=== PATIENT | female | born 1995 | race Caucasian/White ===

== ENCOUNTER 2016-12-05 12:17 | Emergency (ER) | payer SELFPAY ==
[~2016-12-05] VITALS: Ht 172.7 cm; Wt 73.0 kg
[~2016-12-05 12:17] MED LIST: MACR100C2 PO
[2016-12-05 12:23] VITALS: BP 112/76; PULSE 83; RESP 16; TEMP 98.9; O2SAT 98
[2016-12-05] MEDS ORDERED: BACT800T5 PO (13:26)
[2016-12-05] MEDS ORDERED: CIPR-9 PO (13:26)
--- NOTE | 2016-12-05 13:27 | PD ---
HPI Chief Complaint: Mission Coordinator Problem/Complaint Time Seen by Provider: 13:05 Travel History International Travel<30 days: No Contact w/Intl Traveler<30days: No Traveled to known affect area: No History of Present Illness HPI 21-year-old female complains of low abdominal pain. Patient states that the pain started a week ago. Patient states that the pain is intermittent and sharp pain localized to lower abdomen. Patient denies any pain radiation. Patient denies any fever chills. Patient denies any nausea vomiting diarrhea. Patient states that she has minimal discharge recently. Patient denies any dysuria or frequency. Patient has history of recurrent UTI. Patient states that she is 2 weeks late for her menstruation period. PFSH Past Medical History Hx Anticoagulant Therapy: No ADHD: No Anemia: Yes Autoimmune Disease: No Bipolar Disorder: Yes Weight (Kg): 3 Anxiety: Yes Depression: Yes Cardiovascular Problems: No Diabetes: No Diminished Hearing: No Gastrointestinal Disorders: Yes Genitourinary: No Headaches: Yes Musculoskeletal: Yes (CHRONIC LEFT ARM PAIN) Neurologic: No Psychiatric: Yes (CHRONIC DEPRESSION , BIPOLAR, PTSD) Respiratory: No Immunizations Current: Yes Migraines: Yes Seizures: No Thyroid Disease: No Ulcer: No ?: Unknown : 2 Para: 1 Miscarriage: 0 : 0 Ovarian Cysts: Yes (Left) Past Surgical History Abdominal Surgery: Yes (appendectomy 2008) Appendectomy: Yes Section: Yes Cholecystectomy: No Gynecologic Surgery: Yes (removal ovarian cyst 2008) Other Surgery: Yes (01/30-OVARIAN CYSTS , ovary and torsion) Social History Alcohol Use: Yes (Occ.) Tobacco Use: Yes (11/26) Substance Use: Yes (States ETOH approx 2x week. ) Allergies-Medications (Allergen,Severity, Reaction): Coded Allergies: Bees (Verified Allergy, Severe, 12/05/16) Morphine (Verified Adverse Reaction, Intermediate, Nausea/Vomiting, ) Uncoded Allergies: STRAWBERRIES (Allergy, Unknown, 09/09/16) . LACTOSE INTOLERANT (Adverse Reaction, Unknown, 09/09/16) . Reported Meds & Prescriptions Reported Meds & Active Scripts Active Cipro (Ciprofloxacin HCl) 500 Mg Tab 500 Mg PO BID Bactrim DS (Sulfamethoxazole-Trimethoprim) 800-160 Mg Tab 1 Tab PO BID Review of Systems General / Constitutional: No: Fever Eyes: No: Visual changes HENT: No: Headaches Cardiovascular: No: Chest Pain or Discomfort Respiratory: No: Shortness of Breath Gastrointestinal: Positive: Abdominal Pain Genitourinary: No: Dysuria Musculoskeletal: No: Pain Skin: No Rash Neurologic: No: Weakness Psychiatric: No: Depression Endocrine: No: Polydipsia Hematologic/Lymphatic: No: Easy Bruising Physical Exam Narrative GENERAL: Well-nourished, well-developed patient. SKIN: Warm and dry. HEAD: Normocephalic. EYES: No scleral icterus. No injection or drainage. NECK: Supple, trachea midline. No JVD or lymphadenopathy. CARDIOVASCULAR: Regular rate and rhythm without murmurs, gallops, or rubs. RESPIRATORY: Breath sounds equal bilaterally. No accessory muscle use. GASTROINTESTINAL: Abdomen soft, nondistended. Patient has mild tenderness on palpation lower abdomen suprapubic area. No rebound tenderness. No mass. MUSCULOSKELETAL: No cyanosis, or edema. BACK: Nontender without obvious deformity. No CVA tenderness. Data Data Last Documented VS Vital Signs Date Time Temp Pulse Resp B/P Pulse Ox O2 Delivery O2 Flow Rate FiO2 12/05/16 12:23 98.9 83 16 112/76 98 Orders Ed Urine Pregnancytest Poc (12/05/16 12:54) Urinalysis - C+S If Indicated (12/05/16 13:14) MDM Medical Decision Making Medical Screen Exam Complete: Yes Emergency Medical Condition: Yes Interpretation(s) Urine done in the ED negative. Differential Diagnosis Differential diagnosis including UTI, pyelonephritis, cervicitis, PID, ectopic , threatened AB, ovarian cyst, ovarian torsion. Narrative Course 21-year-old female with low abdominal pain. History of recurrent UTI. Patient is 2 weeks late for her regular menstruation period. Urine test negative. I offered patient beta hCG, blood test, patient refused. Patient requested prescription for antibiotic that is free at local store. Diagnosis Primary Impression: UTI (urinary tract infection) Qualified Code: N30.00 - Acute cystitis without hematuria Patient Instructions: General Instructions Additional Instructions: Prescription given for Bactrim and Cipro as directed. Patient has history of recurrent UTI. Patient requests both Bactrim and Cipro. Advised patient to follow up with local low pressure boiler operator. Return if persistent abdominal pain pelvic pain, fever, worsening condition. Med/Other Pt SpecificInfo: Prescription(s) given Scripts Ciprofloxacin (Cipro)500 Mg [id number] Mg PO BID #14 TAB Prov:Eitan Chris MD 12/05/16 Sulfamethoxazole-Trimethoprim (Bactrim DS)800-160 Mg Tab1 Tab PO BID #14 TAB Prov:Eitan Chris MD 12/05/16 Disposition: 01 DISCHARGE HOME Condition: Stable Eitan Chris MD Dec 05, 2016 13:27
[2016-12-05 13:35] LABS: BLOOD, URINE TRACE (NEG); GLUCOSE,URINE NEG (NEG); KETONE, URINE NEG (NEG); NITRITE,URINE NEG (NEG)
[2016-12-05 13:44] LABS: URINE COLOR YELLOW (YELLW/STRAW)
[2016-12-05 13:45] LABS: RBC, URINE 0-3 /hpf (0-3); SQUAMOUS EPITHELIAL CELL URINE 0-5 /hpf (0-5)
[2016-12-05 13:46] LABS: BACTERIA, URINE MOD /hpf; COMMENT (UR) CULTURE INDICATED; CULTURE IF INDICATED CULTURE INDICATED
[2017-02-27] MEDS ORDERED: METR-1 PO (13:29)
[2017-03-14] MEDS ORDERED: ONDA4TAB7 SL (15:55)
[2017-04-09] MEDS ORDERED: ONDA8TAB8 SL (14:13)
[2017-04-09] MEDS ORDERED: RANI150T PO (14:13)
[2017-04-09] MEDS ORDERED: PREN1CHW7 PO (14:19)
[2017-05-06] MEDS ORDERED: NITR1CAP36 PO (14:13)
== END 2016-12-05 14:12 | disposition home or self-care (01) ==
LOC: PHED 12:17
DX: N30.00 Acute cystitis without hematuria (principal); B96.20 Unspecified Escherichia coli [E. coli] as the cause of diseases classified elsewhere
CPT/HCPCS: 81001; 84703; 87077; 87086; 87186; 99284

== ENCOUNTER 2017-02-01 14:07 | Emergency (ER) | payer OTHER ==
[~2017-02-01] VITALS: Ht 170.2 cm; Wt 68.0 kg
[~2017-02-01 14:07] MED LIST changes: +BACT800T5 PO; +CIPR-9 PO; -MACR100C2 PO
[2017-02-01 14:11] VITALS: BP 113/77; PULSE 72; RESP 18; TEMP 98; O2SAT 100
[2017-02-01] MEDS ORDERED: diphenhydrAMINE HCL 25 MG CAP PO ONE (14:45)
[2017-02-01] MEDS ORDERED: PREN29TA PO (14:50)
--- NOTE | 2017-02-01 14:50 | PD ---
HPI Chief Complaint: Skin Problem Time Seen by Provider: 14:39 Travel History International Travel<30 days: No Contact w/Intl Traveler<30days: No Traveled to known affect area: No History of Present Illness HPI This is a 21-year-old female presents emergency department for rash all over for the past 2 days states is itchy in nature. She denies any swelling for throw denies any cough congestion or difficulty breathing. Patient became concerned when the rash started migrating to her "clitoris and became very tingly." Patient denies any fever denies any vaginal bleeding vaginal discharge genital lesion. Patient is 4 weeks . Has not tried anything prior to arrival. She does have some environmental allergies as well as allergies to morphine but has not been exposed to any of those. PFSH Past Medical History Hx Anticoagulant Therapy: No ADHD: No Anemia: Yes Autoimmune Disease: No Bipolar Disorder: Yes Weight (Kg): 3 Anxiety: Yes Depression: Yes Cardiovascular Problems: No Diabetes: No Diminished Hearing: No Gastrointestinal Disorders: Yes Genitourinary: No Headaches: Yes Musculoskeletal: Yes (CHRONIC LEFT ARM PAIN) Neurologic: No Psychiatric: Yes Respiratory: No Immunizations Current: Yes Migraines: Yes Seizures: No Thyroid Disease: No Ulcer: No Tetanus Vaccination: < 5 Years ?: LMP: 4 weeks : 3 Para: 1 Miscarriage: 0 : 0 Ovarian Cysts: Yes (Left) Past Surgical History Abdominal Surgery: Yes (appendectomy 2008) Appendectomy: Yes Section: Yes Cholecystectomy: No Gynecologic Surgery: Yes (removal ovarian cyst 2008) Other Surgery: Yes (01/30-OVARIAN CYSTS , ovary and torsion) Social History Alcohol Use: Yes (Occ.) Tobacco Use: Yes (11/26) Substance Use: No Allergies-Medications (Allergen,Severity, Reaction): Coded Allergies: Bees (Verified Allergy, Severe, 12/05/16) Morphine (Verified Adverse Reaction, Intermediate, Nausea/Vomiting, ) Uncoded Allergies: STRAWBERRIES (Allergy, Unknown, 09/09/16) . LACTOSE INTOLERANT (Adverse Reaction, Unknown, 09/09/16) . Reported Meds & Prescriptions Reported Meds & Active Scripts Active Plus Iron 29-1 mg ( Vit-Iron Carbonyl) 1 Tab Tab 1 Tab PO DAILY Cipro (Ciprofloxacin HCl) 500 Mg Tab 500 Mg PO BID Bactrim DS (Sulfamethoxazole-Trimethoprim) 800-160 Mg Tab 1 Tab PO BID Review of Systems Except as stated in HPI: all other systems reviewed are Neg Physical Exam Narrative GENERAL: Well-nourished, well-developed patient. SKIN: There is a very mild erythematous blotchy rash on her anterior abdomen around the umbilicus as well as the mons pubis. There is also some blotchy areas of her low back. Consistent with mild allergic reaction. HEAD: Normocephalic. EYES: No scleral icterus. No injection or drainage. NECK: Supple, trachea midline. No JVD or lymphadenopathy. CARDIOVASCULAR: Regular rate and rhythm without murmurs, gallops, or rubs. RESPIRATORY: Breath sounds equal bilaterally. No accessory muscle use. GASTROINTESTINAL: Abdomen soft, non-tender, nondistended. Uterine fundus nonpalpable. GENITOURINARY: Patient was examined with female nurse machine ii trimmer present at all times, external exam only shows no rash no lesion on her external genitalia.. MUSCULOSKELETAL: No cyanosis, or edema. BACK: Nontender without obvious deformity. No CVA tenderness. Data Data Last Documented VS Vital Signs Date Time Temp Pulse Resp B/P Pulse Ox O2 Delivery O2 Flow Rate FiO2 02/01/17 14:11 98.0 72 18 113/77 100 Orders Diphenhydramine (Benadryl) (02/01/17 14:45) [facility] Medical Decision Making Medical Screen Exam Complete: Yes Emergency Medical Condition: Yes Differential Diagnosis Hives, allergic dermatitis, cellulitis unlikely, acute abdomen unlikely, Narrative Course Patient roomed emerged permit appears well in no apparent distress. She is 4 weeks but denies any abdominal pain nausea vomiting or diarrhea denies any vaginal bleeding or vaginal discharge. Her rash is very mild. It is pruritic and recommended Benadryl by mouth and follow-up up with her primary care physician. She is not established with OB. We'll prescribe her vitamins and discussed first trimester do's and doughnuts. Diagnosis Primary Impression: Rash Med/Other Pt SpecificInfo: Prescription(s) given Scripts Vit-Iron Carbonyl ( Plus Iron 29-1 mg)1 Tab Tab1 Tab PO DAILY #30 TAB Ref 9 Prov:Shahriar Lawrence MD 02/01/17 Disposition: DISCHARGE HOME Condition: Stable Shahriar Lawrence MD Feb 01, 2017 14:50
[2017-02-27] MEDS ORDERED: METR-1 PO (13:29)
[2017-03-14] MEDS ORDERED: ONDA4TAB7 SL (15:55)
[2017-04-09] MEDS ORDERED: RANI150T PO (14:13)
[2017-04-09] MEDS ORDERED: ONDA8TAB8 SL (14:13)
[2017-04-09] MEDS ORDERED: PREN1CHW7 PO (14:19)
[2017-05-06] MEDS ORDERED: NITR1CAP36 PO (14:13)
== END 2017-02-01 14:58 | disposition home or self-care (01) ==
LOC: NEPB 14:07
DX: R21 Rash and other nonspecific skin eruption (principal); F17.210 Nicotine dependence, cigarettes, uncomplicated
CPT/HCPCS: 99282

== ENCOUNTER 2017-02-07 10:07 | Emergency (ER) | payer OTHER ==
[~2017-02-07] VITALS: Ht 170.2 cm; Wt 70.0 kg
[~2017-02-07 10:07] MED LIST changes: +PREN29TA PO
[2017-02-07 10:09] VITALS: BP 126/74; PULSE 100; RESP 20; TEMP 99.2; O2SAT 96
[2017-02-07] MEDS ORDERED: SODIUM CHLOR 0.9% 1000 ML INJ 1,000 ML IV SCH (10:24)
[2017-02-07 10:28] VITALS: PULSE 101; O2SAT 100
[2017-02-07] MEDS ORDERED: SODIUM CHLORIDE 0.9% FLUSH 5 ML FLUSH IVF PRN (10:30)
[2017-02-07] MEDS ORDERED: ONDANSETRON HCL 4 MG/2 ML VIAL IVP ONE (10:30)
--- NOTE | 2017-02-07 10:44 | PD ---
HPI Chief Complaint: Cold / Flu Symptoms Time Seen by Provider: 10:36 Travel History International Travel<30 days: No Contact w/Intl Traveler<30days: No Traveled to known affect area: No History of Present Illness HPI 21-year-old female who is currently 7 weeks by dates, has not yet follow-up with EMBROIDERY OPERATOR, presents to the ER today because she states that her knees has been sick and she started having cough, cold symptoms, sore throat, nausea, vomiting, for about 4 days. She is here because she keeps vomiting. She denies any diarrhea, abdominal pain, vaginal bleeding, fevers, urinary symptoms, or any other symptoms. Modifying Factors: None Associated Signs & Symptoms: Cough, cold symptoms, nasal congestion, nausea, vomiting for 4 days Risk Factors: Sick contact, PFSH Past Medical History Hx Anticoagulant Therapy: No ADHD: No Anemia: Yes Autoimmune Disease: No Bipolar Disorder: Yes Weight (Kg): 3 Anxiety: Yes Depression: Yes Cardiovascular Problems: No Diabetes: No Diminished Hearing: No Gastrointestinal Disorders: Yes Genitourinary: No Headaches: Yes Musculoskeletal: Yes (CHRONIC LEFT ARM PAIN) Neurologic: No Psychiatric: Yes Respiratory: No Immunizations Current: Yes Migraines: Yes Seizures: No Thyroid Disease: No Ulcer: No ?: LMP: 12/13/16 : 2 Para: 1 Miscarriage: 0 : 0 Ovarian Cysts: Yes (Left) Past Surgical History Abdominal Surgery: Yes (appendectomy 2008) Appendectomy: Yes Section: Yes Cholecystectomy: No Gynecologic Surgery: Yes (removal ovarian cyst 2008) Hysterectomy: Yes (L SIDE ONLY ) Other Surgery: Yes (01/30-OVARIAN CYSTS , ovary and torsion) Social History Alcohol Use: Yes (Occ.) Tobacco Use: Yes (/2) Substance Use: No Allergies-Medications (Allergen,Severity, Reaction): Coded Allergies: Bees (Verified Allergy, Severe, 02/07/17) Morphine (Verified Adverse Reaction, Intermediate, Nausea/Vomiting, ) Uncoded Allergies: STRAWBERRIES (Allergy, Unknown, 09/09/16) . LACTOSE INTOLERANT (Adverse Reaction, Unknown, 09/09/16) . Reported Meds & Prescriptions Reported Meds & Active Scripts Active Zofran Odt (Ondansetron Odt) 4 Mg Tab 4 Mg SL Q6HR PRN Review of Systems Except as stated in HPI: all other systems reviewed are Neg Physical Exam Narrative GENERAL: Well-developed young white female patient who is awake, alert, oriented 3. She is not in acute distress. SKIN: Warm and dry. HEAD: Atraumatic. Normocephalic. EYES: Pupils equal and round. No scleral icterus. No injection or drainage. ENT: No nasal bleeding or discharge. Mucous membranes pink and moist. Pharyngeal erythema without significant exudates, tonsillar pillars symmetrical. NECK: Trachea midline. No JVD. CARDIOVASCULAR: Regular rate and rhythm. No murmur appreciated. RESPIRATORY: No accessory muscle use. Clear to auscultation. Breath sounds equal bilaterally. GASTROINTESTINAL: Abdomen soft, non-tender, nondistended. Hepatic and splenic margins not palpable. Benign. MUSCULOSKELETAL: No obvious deformities. No clubbing. No cyanosis. No edema. NEUROLOGICAL: Awake and alert. No obvious cranial nerve deficits. Motor grossly within normal limits. Normal speech. PSYCHIATRIC: Appropriate mood and affect; insight and judgment normal. Data Data Last Documented VS Vital Signs Date Time Temp Pulse Resp B/P Pulse Ox O2 Delivery O2 Flow Rate FiO2 02/07/17 10:28 101 100 Room Air 02/07/17 10:21 26 02/07/17 10:09 99.2 126/74 Orders Complete Blood Count With Diff (02/07/17 10:24) Comprehensive Metabolic Panel (02/07/17 10:24) Lipase (02/07/17 10:24) Urinalysis - C+S If Indicated (02/07/17 10:24) Iv Access Insert/Monitor (02/07/17 10:24) Ecg Monitoring (02/07/17 10:24) Oximetry (02/07/17 10:24) Ondansetron Inj (Zofran Inj) (02/07/17 10:30) Sodium Chlor 0.9% 1000 Ml Inj (Ns 1000 M (02/07/17 10:24) Sodium Chloride 0.9% Flush (Ns Flush) (02/07/17 10:30) Ed Urine Pregnancytest Poc (02/07/17 10:24) Beta Hcg (Quant/Titer) (02/07/17 10:36) Ed Poc Ultrasound (02/07/17 ) Influenzae A/B Antigen (02/07/17 10:49) Labs Laboratory Tests Test 02/07/17 10:30 White Blood Count 5.8 TH/MM3 Red Blood Count 4.46 MIL/MM3 Hemoglobin 12.7 GM/DL Hematocrit 37.9 % Mean Corpuscular Volume 84.9 FL Mean Corpuscular Hemoglobin 28.5 PG Mean Corpuscular Hemoglobin 33.6 % Concent Red Cell Distribution Width 16.0 % Platelet Count 144 TH/MM3 Mean Platelet Volume 9.1 FL Neutrophils (%) (Auto) 76.3 % Lymphocytes (%) (Auto) 10.6 % Monocytes (%) (Auto) 12.4 % Eosinophils (%) (Auto) 0.1 % Basophils (%) (Auto) 0.6 % Neutrophils # (Auto) 4.4 TH/MM3 Lymphocytes # (Auto) 0.6 TH/MM3 Monocytes # (Auto) 0.7 TH/MM3 Eosinophils # (Auto) 0.0 TH/MM3 Basophils # (Auto) 0.0 TH/MM3 CBC Comment DIFF FINAL Differential Comment Urine Color YELLOW Urine Turbidity CLOUDY Urine pH 6.0 Urine Specific [place] 1.027 Urine Protein 100 mg/dL Urine Glucose (UA) 70 mg/dL Urine Ketones TRACE mg/dL Urine Occult Blood NEG Urine Nitrite NEG Urine Bilirubin NEG Urine Urobilinogen 4.0 MG/DL Urine Leukocyte Esterase NEG Urine Squamous Epithelial 4 /hpf Cells Urine Amorphous Sediment MOD Urine Mucus MANY /lpf Microscopic Urinalysis Comment CULT NOT INDICATED Sodium Level 134 MEQ/L Potassium Level 3.2 MEQ/L Chloride Level 101 MEQ/L Carbon Dioxide Level 22.1 MEQ/L Anion Gap 11 MEQ/L Blood Urea Nitrogen 6 MG/DL Creatinine 0.84 MG/DL Estimat Glomerular Filtration 86 ML/MIN Rate Random Glucose 104 MG/DL Calcium Level 9.1 MG/DL Total Bilirubin 0.3 MG/DL Aspartate Amino Transf 14 U/L (AST/SGOT) Alanine Aminotransferase 15 U/L (ALT/SGPT) Alkaline Phosphatase 66 U/L Total Protein 7.9 GM/DL Albumin 4.1 GM/DL Lipase 46 U/L Human Chorionic Gonadotropin, [id number] MIU/ML Quant MDM Medical Decision Making Medical Screen Exam Complete: Yes Emergency Medical Condition: Yes Medical Record Reviewed: Yes Interpretation(s) Laboratory Tests Test 02/07/17 10:30 Platelet Count 144 TH/MM3 (150-450) Neutrophils (%) (Auto) 76.3 % (16.0-70.0) Monocytes (%) (Auto) 12.4 % (0.0-8.0) Lymphocytes # (Auto) 0.6 TH/MM3 (1.0-4.8) Urine Turbidity CLOUDY (CLEAR) Urine Protein 100 mg/dL (NEG-TRACE) Urine Glucose (UA) 70 mg/dL (NEG) Urine Ketones TRACE mg/dL (NEG) Urine Urobilinogen 4.0 MG/DL (LESS THAN 2.0) Urine Mucus MANY /lpf (OCC) Sodium Level 134 MEQ/L (136-145) Potassium Level 3.2 MEQ/L (3.5-5.1) Blood Urea Nitrogen 6 MG/DL (7-18) Estimat Glomerular Filtration 86 ML/MIN (>89) Rate Aspartate Amino Transf 14 U/L (15-37) (AST/SGOT) Lipase 46 U/L (73-393) Human Chorionic Gonadotropin, 334[address] MIU/ML Quant (0-5) Differential Diagnosis Hyperemesis gravidarum versus viral syndrome versus influenza versus metabolic issues versus dehydration Narrative Course IV fluids and Zofran was given in the ER. Lab work drawn. Transabdominal ultrasound shows IUP. Lab work did not indicate significant metabolic issues or dehydration. At this point, my plan would be to release the patient would follow-up to primary care physician and EMBROIDERY OPERATOR. Return for any worsening in symptoms as needed. The plan has been discussed with her and she states understanding. Procedures Procedure Narrative Transabdominal ER ultrasound done by me shows early IUP. Diagnosis Primary Impression: Viral syndrome Additional Impression: Hyperemesis gravidarum Med/Other Pt SpecificInfo: Prescription(s) given Scripts Ondansetron Odt (Zofran Odt)4 Mg Tab4 Mg SL Q6HR PRN (Nausea/Vomiting) #5 TAB Ref 0 Prov:Katina Major MD 02/07/17 Disposition: 01 DISCHARGE HOME Condition: Stable Katina Major MD Feb 07, 2017 10:44 Katina Major MD Feb 07, 2017 10:44
[2017-02-07 10:45] LABS: AUTOMATED NEUTROPHIL # 4.4 TH/MM3 (1.8-7.7); BASOPHIL % 0.6 % (0.0-2.0); EOSINOPHIL % 0.1 % (0.0-4.0); HEMATOCRIT 37.9 % (35.0-46.0); HEMO FLAGS DIFF FINAL; LYMPH % 10.6 % (9.0-44.0); LYMPHOCYTE # 0.6 TH/MM3 (1.0-4.8); MEAN CELL VOLUME 84.9 FL (80.0-100.0); MEAN CORPUSCULAR HEMOGLOBIN 28.5 PG (27.0-34.0); MEAN CORPUSCULAR HGB CONC 33.6 % (32.0-36.0); MONO % 12.4 % (0.0-8.0); NEUT % 76.3 % (16.0-70.0); PLATELET COUNT 144 TH/MM3 (150-450); RED BLOOD COUNT 4.46 MIL/MM3 (4.00-5.30); WHITE BLOOD COUNT 5.8 TH/MM3 (4.0-11.0)
[2017-02-07 10:55] LABS: BLOOD, URINE NEG (NEG); GLUCOSE,URINE 70 mg/dL (NEG); KETONE, URINE TRACE mg/dL (NEG); MUCUS URINE MANY /lpf (OCC); NITRITE,URINE NEG (NEG); SQUAMOUS EPITHELIAL CELL URINE 4 /hpf (0-5)
[2017-02-07 10:56] LABS: URINE COLOR YELLOW (YELLW/STRAW)
[2017-02-07 10:57] LABS: COMMENT (UR) CULT NOT INDICATED; CULTURE IF INDICATED CULT NOT INDICATED
[2017-02-07 11:01] LABS: ALT (GPT) 15 U/L (10-53); ANION GAP 11 MEQ/L (5-15); AST (GOT) 14 U/L (15-37); BICARBONATE 22.1 MEQ/L (21.0-32.0); BLOOD UREA NITROGEN 6 MG/DL (7-18); CHLORIDE 101 MEQ/L (98-107); GLOMERULAR FILTRATION RATE 86 ML/MIN (>89); POTASSIUM 3.2 MEQ/L (3.5-5.1); SODIUM (NA) 134 MEQ/L (136-145)
[2017-02-07 11:02] LABS: ALKALINE PHOSPHATASE 66 U/L (45-117); TOTAL BILIRUBIN ADULT 0.3 MG/DL (0.2-1.0)
[2017-02-07 11:17] LABS: BETA HCG QUANT 48678 MIU/ML (0-5)
[2017-02-07] MEDS ORDERED: ZOFR4TAB3 SL (11:46)
[2017-02-27] MEDS ORDERED: METR-1 PO (13:29)
[2017-03-14] MEDS ORDERED: ONDA4TAB7 SL (15:55)
[2017-04-09] MEDS ORDERED: RANI150T PO (14:13)
[2017-04-09] MEDS ORDERED: ONDA8TAB8 SL (14:13)
[2017-04-09] MEDS ORDERED: PREN1CHW7 PO (14:19)
[2017-05-06] MEDS ORDERED: NITR1CAP36 PO (14:13)
== END 2017-02-07 13:13 | disposition home or self-care (01) ==
LOC: NEPC 10:07
DX: O21.0 Mild hyperemesis gravidarum (principal); B34.9 Viral infection, unspecified; Z3A.01 Less than 8 weeks gestation of pregnancy
CPT/HCPCS: 80053; 81001; 83690; 84702; 84703; 85025; 87804; 96361; 96374; 99284; J2405; J7030

== ENCOUNTER 2017-02-11 16:25 | Emergency (ER) | payer OTHER ==
[~2017-02-11] VITALS: Ht 170.2 cm; Wt 68.0 kg
[~2017-02-11 16:25] MED LIST changes: -BACT800T5 PO; -CIPR-9 PO; -PREN29TA PO; +ZOFR4TAB3 SL
[2017-02-11 16:27] VITALS: BP 116/70; PULSE 75; RESP 20; TEMP 97.5; O2SAT 98
[2017-02-27] MEDS ORDERED: METR-1 PO (13:29)
[2017-03-14] MEDS ORDERED: ONDA4TAB7 SL (15:55)
[2017-04-09] MEDS ORDERED: RANI150T PO (14:13)
[2017-04-09] MEDS ORDERED: ONDA8TAB8 SL (14:13)
[2017-04-09] MEDS ORDERED: PREN1CHW7 PO (14:19)
[2017-05-06] MEDS ORDERED: NITR1CAP36 PO (14:13)
== END 2017-02-11 16:32 | disposition left against medical advice (07) ==
LOC: NED 16:25
DX: Z53.21 Procedure and treatment not carried out due to patient leaving prior to being seen by health care provider (principal)
CPT/HCPCS: 99281

== ENCOUNTER 2017-02-17 11:59 | Emergency (ER) | payer OTHER ==
[~2017-02-17] VITALS: Ht 170.2 cm; Wt 70.0 kg
[2017-02-17 12:02] VITALS: BP 108/60; PULSE 75; RESP 20; TEMP 97.6; O2SAT 97
--- NOTE | 2017-02-17 12:45 | PD ---
HPI . Vaginal bleeding at 8 weeks Chief Complaint: Related Problem Time Seen by Provider: 12:45 Travel History International Travel<30 days: No Contact w/Intl Traveler<30days: No Traveled to known affect area: No History of Present Illness HPI 21-year-old female with history of anemia during , history of partial hysterectomy with removal of left fallopian tube and ovary due to torsion here with complaints of vaginal bleeding and right sided abdominal pain. Patient is (records indicated possible ) now 8 weeks with estimated date of delivery of 09/19/17. She has not yet established with her OB Brittny Chappis. She has appointment this coming up . Patient is complaining of vaginal bleeding heavy enough to use one pad every 6 hours. She is also complaining of right sided lower quadrant pain in the buttocks and the back as well. She does admit to tobaccoism and smokes half a pack a day. Review of records show Rh negative. PFSH Past Medical History Hx Anticoagulant Therapy: No ADHD: No Anemia: Yes Autoimmune Disease: No Bipolar Disorder: Yes Weight (Kg): 3 Anxiety: Yes Depression: Yes Cardiovascular Problems: No Diabetes: No Diminished Hearing: No Gastrointestinal Disorders: Yes Genitourinary: No Headaches: Yes Musculoskeletal: Yes (CHRONIC LEFT ARM PAIN) Neurologic: No Psychiatric: Yes Respiratory: No Immunizations Current: Yes Migraines: Yes Seizures: No Thyroid Disease: No Ulcer: No ?: : 2 Para: 1 Miscarriage: 0 : 0 Ovarian Cysts: Yes (Left) Past Surgical History Abdominal Surgery: Yes (appendectomy 2008) Appendectomy: Yes Section: Yes Cholecystectomy: No Gynecologic Surgery: Yes (removal ovarian cyst 2008) Hysterectomy: Yes (L SIDE ONLY ) Other Surgery: Yes (01/30-OVARIAN CYSTS , ovary and torsion) Social History Alcohol Use: Yes (Occ.) Tobacco Use: Yes (11/26) Substance Use: No Allergies-Medications (Allergen,Severity, Reaction): Coded Allergies: Bees (Verified Allergy, Severe, 02/17/17) Morphine (Verified Adverse Reaction, Intermediate, Nausea/Vomiting, ) Uncoded Allergies: STRAWBERRIES (Allergy, Unknown, 09/09/16) . LACTOSE INTOLERANT (Adverse Reaction, Unknown, 09/09/16) . Reported Meds & Prescriptions Reported Meds & Active Scripts Active Zofran Odt (Ondansetron Odt) 4 Mg Tab 4 Mg SL Q6HR PRN Review of Systems General / Constitutional: No: Fever Eyes: No: Visual changes HENT: No: Headaches Cardiovascular: No: Chest Pain or Discomfort Respiratory: No: Shortness of Breath Gastrointestinal: No: Abdominal Pain Genitourinary: No: Dysuria Musculoskeletal: Positive: Pain (right lower quadrant pain) Skin: No Rash Neurologic: No: Weakness Psychiatric: No: Depression Endocrine: No: Polydipsia Hematologic/Lymphatic: No: Easy Bruising Physical Exam Narrative GENERAL: AAO x 3, no acute distress, Well-nourished, well-developed patient. SKIN: Warm and dry. No visible rashes or bruising. HEAD: Normocephalic and atraumatic. EYES: No scleral icterus. No injection or drainage. ENT: No nasal drainage noted. Mucous membranes pink. Airway patent. NECK: Supple, trachea midline. No JVD. CARDIOVASCULAR: Regular rate and rhythm without murmurs, gallops, or rubs. RESPIRATORY: Breath sounds equal bilaterally. No accessory muscle use. No rhonchi or rales. GASTROINTESTINAL: Abdomen soft, non-tender, nondistended. pain not reproducible on exam. EXTREMITIES: No cyanosis or edema. BACK: Nontender without obvious deformity. No CVA tenderness. PSYCH: AAO x 3, normal affect. Data Data Last Documented VS Vital Signs Date Time Temp Pulse Resp B/P Pulse Ox O2 Delivery O2 Flow Rate FiO2 02/17/17 14:36 98 Room Air 02/17/17 12:44 79 18 02/17/17 12:02 97.6 108/60 Orders Beta Hcg (Quant/Titer) (02/17/17 12:50) Complete Blood Count With Diff (02/17/17 12:50) Comprehensive Metabolic Panel (02/17/17 12:50) Urinalysis - C+S If Indicated (02/17/17 12:50) Iv Access Insert/Monitor (02/17/17 12:50) Ecg Monitoring (02/17/17 12:50) Oximetry (02/17/17 12:50) Sodium Chloride 0.9% Flush (Ns Flush) (02/17/17 13:00) Us Pelvis (Ques Preg/Ectopic) (02/17/17 12:54) Urine Culture (02/17/17 13:24) Ed Urine Pregnancytest Poc (02/17/17 14:07) Rhogam Only (02/17/17 15:01) Labs Laboratory Tests Test 02/17/17 02/17/17 12:24 13:24 White Blood Count 5.9 TH/MM3 Red Blood Count 4.40 MIL/MM3 Hemoglobin 12.8 GM/DL Hematocrit 37.0 % Mean Corpuscular Volume 84.1 FL Mean Corpuscular Hemoglobin 29.0 PG Mean Corpuscular Hemoglobin 34.5 % Concent Red Cell Distribution Width 15.8 % Platelet Count 179 TH/MM3 Mean Platelet Volume 9.8 FL Neutrophils (%) (Auto) 54.0 % Lymphocytes (%) (Auto) 34.1 % Monocytes (%) (Auto) 10.6 % Eosinophils (%) (Auto) 1.1 % Basophils (%) (Auto) 0.2 % Neutrophils # (Auto) 3.2 TH/MM3 Lymphocytes # (Auto) 2.0 TH/MM3 Monocytes # (Auto) 0.6 TH/MM3 Eosinophils # (Auto) 0.1 TH/MM3 Basophils # (Auto) 0.0 TH/MM3 CBC Comment DIFF FINAL Differential Comment Sodium Level 139 MEQ/L Potassium Level 3.6 MEQ/L Chloride Level 104 MEQ/L Carbon Dioxide Level 26.8 MEQ/L Anion Gap 8 MEQ/L Blood Urea Nitrogen 6 MG/DL Creatinine 0.52 MG/DL Estimat Glomerular Filtration 149 ML/MIN Rate Random Glucose 87 MG/DL Calcium Level 9.2 MG/DL Total Bilirubin 0.5 MG/DL Aspartate Amino Transf 16 U/L (AST/SGOT) Alanine Aminotransferase 33 U/L (ALT/SGPT) Alkaline Phosphatase 52 U/L Total Protein 7.5 GM/DL Albumin 3.6 GM/DL Human Chorionic Gonadotropin, 17919 MIU/ML Quant Urine Color YELLOW Urine Turbidity CLOUDY Urine pH 7.0 Urine Specific [place] 1.022 Urine Protein 30 mg/dL Urine Glucose (UA) NEG mg/dL Urine Ketones NEG mg/dL Urine Occult Blood MOD Urine Nitrite NEG Urine Bilirubin NEG Urine Urobilinogen 4.0 MG/DL Urine Leukocyte Esterase LARGE Urine RBC 4 /hpf Urine WBC 13 /hpf Urine Squamous Epithelial 54 /hpf Cells Urine Amorphous Sediment MOD Urine Bacteria OCC /hpf Urine Mucus MANY /lpf Microscopic Urinalysis Comment CULTURE INDICATED MDM Medical Decision Making Medical Screen Exam Complete: Yes Emergency Medical Condition: Yes Medical Record Reviewed: Yes Differential Diagnosis miscarriage, threatened ab, vs. ectopic Narrative Course 21-year-old female with history of anemia during , history of partial hysterectomy with removal of left fallopian tube and ovary due to torsion here with complaints of vaginal bleeding and right sided abdominal pain. Patient is (records indicated possible ) now 8 weeks with estimated date of delivery of 09/19/17. She has not yet established with her OB Brittny Chappis. She has appointment this coming up . Patient is complaining of vaginal bleeding heavy enough to use one pad every 6 hours. She is also complaining of right sided lower quadrant pain in the buttocks and the back as well. She does admit to tobaccoism and smokes half a pack a day. Review of records show Rh negative. Patient seen and examined. Discussed with Dr. Major, who also examined the patient. Recommend labs and ultrasound. Laboratory Tests Test 02/17/17 02/17/17 12:24 13:24 White Blood Count 5.9 TH/MM3 Red Blood Count 4.40 MIL/MM3 Hemoglobin 12.8 GM/DL Hematocrit 37.0 % Mean Corpuscular Volume 84.1 FL Mean Corpuscular Hemoglobin 29.0 PG Mean Corpuscular Hemoglobin 34.5 % Concent Red Cell Distribution Width 15.8 % Platelet Count 179 TH/MM3 Mean Platelet Volume 9.8 FL Neutrophils (%) (Auto) 54.0 % Lymphocytes (%) (Auto) 34.1 % Monocytes (%) (Auto) 10.6 % Eosinophils (%) (Auto) 1.1 % Basophils (%) (Auto) 0.2 % Neutrophils # (Auto) 3.2 TH/MM3 Lymphocytes # (Auto) 2.0 TH/MM3 Monocytes # (Auto) 0.6 TH/MM3 Eosinophils # (Auto) 0.1 TH/MM3 Basophils # (Auto) 0.0 TH/MM3 CBC Comment DIFF FINAL Differential Comment Sodium Level 139 MEQ/L Potassium Level 3.6 MEQ/L Chloride Level 104 MEQ/L Carbon Dioxide Level 26.8 MEQ/L Anion Gap 8 MEQ/L Blood Urea Nitrogen 6 MG/DL Creatinine 0.52 MG/DL Estimat Glomerular Filtration 149 ML/MIN Rate Random Glucose 87 MG/DL Calcium Level 9.2 MG/DL Total Bilirubin 0.5 MG/DL Aspartate Amino Transf 16 U/L (AST/SGOT) Alanine Aminotransferase 33 U/L (ALT/SGPT) Alkaline Phosphatase 52 U/L Total Protein 7.5 GM/DL Albumin 3.6 GM/DL Human Chorionic Gonadotropin, 99135 MIU/ML Quant Urine Color YELLOW Urine Turbidity CLOUDY Urine pH 7.0 Urine Specific [place] 1.022 Urine Protein 30 mg/dL Urine Glucose (UA) NEG mg/dL Urine Ketones NEG mg/dL Urine Occult Blood MOD Urine Nitrite NEG Urine Bilirubin NEG Urine Urobilinogen 4.0 MG/DL Urine Leukocyte Esterase LARGE Urine RBC 4 /hpf Urine WBC 13 /hpf Urine Squamous Epithelial 54 /hpf Cells Urine Amorphous Sediment MOD Urine Bacteria OCC /hpf Urine Mucus MANY /lpf Microscopic Urinalysis Comment CULTURE INDICATED US visualized by Dr. Major. IUP with heartbeat. Per review of records patient is Rh-. We will administer RhoGAM and she will be stable for discharge. Discussed with patient personally. She has been advised to follow-up with her [employer] as soon as possible. Patient verbalized understanding of instructions, questions were answered, and thanked me for their care. I advised them if their condition worsens, please return to the nearest emergency room for further care. Diagnosis Primary Impression: Vaginal bleeding Additional Impression: Qualified Code: Z3A.08 - 8 weeks gestation of Patient Instructions: Abdominal Pain in (ED), General Instructions Additional Instructions: Please return to emergency department if your symptoms return or worsen. Follow up with your primary care provider. Take vitamins. 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 Disposition: 01 DISCHARGE HOME Condition: Stable Candice Mahmood Feb 17, 2017 12:45
[2017-02-17] MEDS ORDERED: SODIUM CHLORIDE 0.9% FLUSH 10 ML FLUSH IV FLUSH PRN (13:00)
[2017-02-17 13:41] LABS: AUTOMATED NEUTROPHIL # 3.2 TH/MM3 (1.8-7.7); BASOPHIL % 0.2 % (0.0-2.0); EOSINOPHIL # 0.1 TH/MM3 (0-0.4); EOSINOPHIL % 1.1 % (0.0-4.0); HEMO FLAGS DIFF FINAL; LYMPH % 34.1 % (9.0-44.0); MEAN CELL VOLUME 84.1 FL (80.0-100.0); MEAN CORPUSCULAR HGB CONC 34.5 % (32.0-36.0); MONO % 10.6 % (0.0-8.0); PLATELET COUNT 179 TH/MM3 (150-450); RED CELL DISTRIBUTION WIDTH 15.8 % (11.6-17.2); WHITE BLOOD COUNT 5.9 TH/MM3 (4.0-11.0)
[2017-02-17 14:00] LABS: ANION GAP 8 MEQ/L (5-15); AST (GOT) 16 U/L (15-37); BICARBONATE 26.8 MEQ/L (21.0-32.0); BLOOD UREA NITROGEN 6 MG/DL (7-18); CHLORIDE 104 MEQ/L (98-107); GLOMERULAR FILTRATION RATE 149 ML/MIN (>89); POTASSIUM 3.6 MEQ/L (3.5-5.1); SODIUM (NA) 139 MEQ/L (136-145)
[2017-02-17 14:03] LABS: BACTERIA, URINE OCC /hpf; BLOOD, URINE MOD (NEG); COMMENT (UR) CULTURE INDICATED; CULTURE IF INDICATED CULTURE INDICATED; GLUCOSE,URINE NEG (NEG); KETONE, URINE NEG (NEG); MUCUS URINE MANY /lpf (OCC); NITRITE,URINE NEG (NEG); SQUAMOUS EPITHELIAL CELL URINE 54 /hpf (0-5); URINE COLOR YELLOW (YELLW/STRAW)
[2017-02-17 14:18] LABS: ALKALINE PHOSPHATASE 52 U/L (45-117); ALT (GPT) 33 U/L (10-53); BETA HCG QUANT 96745 MIU/ML (0-5); TOTAL BILIRUBIN ADULT 0.5 MG/DL (0.2-1.0)
[2017-02-17 14:36] VITALS: O2SAT 98
--- NOTE | 2017-02-17 15:58 | RADRPT ---
EXAM DATE/TIME: 02/17/2017 14:46 [facility] COMPARISON: No previous studies available for comparison. INDICATIONS : Pelvic pain and vaginal bleeding with . LAB(S): Beta-hC MEDICAL HISTORY : . Migraines. Ovarian cysts. Bipolar disorder. Depression. Anxiety. Anemia. SURGICAL HISTORY : Appendectomy. Partial hysterectomy. ENCOUNTER: Initial ACUITY: 1 day PAIN SCORE: 4/10 LOCATION: Bilateral pelvis MEASUREMENTS: UTERUS: 12.9 x 10.1 x 7.8 cm ENDOMETRIAL STRIPE: 16 mm RIGHT OVARY: 3.3 x 1.9 x 2.5 cm LEFT OVARY: 5.6 x 2.4 x 2.4 cm FREE FLUID: No CROWN RUMP LENGTH: 1.7 cm = 8 WKS 1 DAYS FHR: 185 BPM FINDINGS: There is a single viable intrauterine with gestational age 8 weeks one day by crown-rump le ngth and 8 weeks 4 days by gestational sac size. heart rate 185 beats per minute. Yolk sac pres ent. No free fluid. Right ovary and uterus otherwise unremarkable. Questionable left ovary still pres ent. CONCLUSION: 1. Single viable intrauterine of 8 weeks one day by crown-rump length and 8 weeks 4 days by gestational sac size. No free fluid or adnexal mass. Winston Aguirre MD on February 17, 2017 at 15:54 Board Certified Radiologist. This report was verified electronically.
[2017-02-17] MEDS ORDERED: CEPH-460 PO (16:38)
--- NOTE | 2017-02-17 16:39 | PD ---
Physical Exam Date Seen by Provider: Feb 17, 2017 Time Seen by Provider: 14:30 Narrative I, Dr. Major, have reviewed the advance practice practitioner's documentation and am in agreement, met with the patient face to face, made the diagnosis, and the medical decision making was done by me. *My assessment and Findings: Patient seen and evaluated with PA, please see PA for further details. Here because she is and vaginal bleeding. Has history of a left partial hysterectomy and oophorectomy. Laboratory Tests Test 02/17/17 02/17/17 12:24 13:24 Monocytes (%) (Auto) 10.6 % (0.0-8.0) Blood Urea Nitrogen 6 MG/DL (7-18) Human Chorionic Gonadotropin, 949[address] MIU/ML Quant (0-5) Urine Turbidity CLOUDY (CLEAR) Urine Protein 30 mg/dL (NEG-TRACE) Urine Occult Blood MOD (NEG) Urine Urobilinogen 4.0 MG/DL (LESS THAN 2.0) Urine Leukocyte Esterase LARGE (NEG) Urine RBC 4 /hpf (0-3) Urine WBC 13 /hpf (0-5) Urine Bacteria OCC /hpf (NONE) Urine Mucus MANY /lpf (OCC) Last 24 hours Impressions Pelvis Ultrasound 02/17/17 1254 Signed Impressions: Service Date/Time: Friday, February 17, 2017 14:46 - CONCLUSION: 1. Single viable intrauterine of 8 weeks one day by crown-rump length and 8 weeks 4 days by gestational sac size. No free fluid or adnexal mass. Winston Aguirre MD Patient is Rh- and RhoGAM was ordered for the patient. Her hCG is consistent with dates and ultrasound shows IUP. At this point, patient will be released with follow-up to [employer]. Return for worsening in pain, bleeding, and as needed. The plan was discussed with patient and she states understanding. Patient also has a bacteriuria and UTI which I plan to treat. Data Data Last Documented VS Vital Signs Date Time Temp Pulse Resp B/P Pulse Ox O2 Delivery O2 Flow Rate FiO2 02/17/17 14:36 98 Room Air 02/17/17 12:44 79 18 02/17/17 12:02 97.6 108/60 Orders Beta Hcg (Quant/Titer) (02/17/17 12:50) Complete Blood Count With Diff (02/17/17 12:50) Comprehensive Metabolic Panel (02/17/17 12:50) Urinalysis - C+S If Indicated (02/17/17 12:50) Iv Access Insert/Monitor (02/17/17 12:50) Ecg Monitoring (02/17/17 12:50) Oximetry (02/17/17 12:50) Sodium Chloride 0.9% Flush (Ns Flush) (02/17/17 13:00) Us Pelvis (Ques Preg/Ectopic) (02/17/17 12:54) Urine Culture (02/17/17 13:24) Ed Urine Pregnancytest Poc (02/17/17 14:07) Rhogam Only (02/17/17 15:01) Labs Laboratory Tests Test 02/17/17 02/17/17 12:24 13:24 White Blood Count 5.9 TH/MM3 Red Blood Count 4.40 MIL/MM3 Hemoglobin 12.8 GM/DL Hematocrit 37.0 % Mean Corpuscular Volume 84.1 FL Mean Corpuscular Hemoglobin 29.0 PG Mean Corpuscular Hemoglobin 34.5 % Concent Red Cell Distribution Width 15.8 % Platelet Count 179 TH/MM3 Mean Platelet Volume 9.8 FL Neutrophils (%) (Auto) 54.0 % Lymphocytes (%) (Auto) 34.1 % Monocytes (%) (Auto) 10.6 % Eosinophils (%) (Auto) 1.1 % Basophils (%) (Auto) 0.2 % Neutrophils # (Auto) 3.2 TH/MM3 Lymphocytes # (Auto) 2.0 TH/MM3 Monocytes # (Auto) 0.6 TH/MM3 Eosinophils # (Auto) 0.1 TH/MM3 Basophils # (Auto) 0.0 TH/MM3 CBC Comment DIFF FINAL Differential Comment Sodium Level 139 MEQ/L Potassium Level 3.6 MEQ/L Chloride Level 104 MEQ/L Carbon Dioxide Level 26.8 MEQ/L Anion Gap 8 MEQ/L Blood Urea Nitrogen 6 MG/DL Creatinine 0.52 MG/DL Estimat Glomerular Filtration 149 ML/MIN Rate Random Glucose 87 MG/DL Calcium Level 9.2 MG/DL Total Bilirubin 0.5 MG/DL Aspartate Amino Transf 16 U/L (AST/SGOT) Alanine Aminotransferase 33 U/L (ALT/SGPT) Alkaline Phosphatase 52 U/L Total Protein 7.5 GM/DL Albumin 3.6 GM/DL Human Chorionic Gonadotropin, 48359 MIU/ML Quant Urine Color YELLOW Urine Turbidity CLOUDY Urine pH 7.0 Urine Specific [place] 1.022 Urine Protein 30 mg/dL Urine Glucose (UA) NEG mg/dL Urine Ketones NEG mg/dL Urine Occult Blood MOD Urine Nitrite NEG Urine Bilirubin NEG Urine Urobilinogen 4.0 MG/DL Urine Leukocyte Esterase LARGE Urine RBC 4 /hpf Urine WBC 13 /hpf Urine Squamous Epithelial 54 /hpf Cells Urine Amorphous Sediment MOD Urine Bacteria OCC /hpf Urine Mucus MANY /lpf Microscopic Urinalysis Comment CULTURE INDICATED MDM Medical Record Reviewed: Yes Supervised Visit with [facility]: Yes Diagnosis Primary Impression: Vaginal bleeding Additional Impressions: Qualified Code: Z3A.08 - 8 weeks gestation of UTI (urinary tract infection) Patient Instructions: General Instructions, Abdominal Pain in (ED) Departure Forms: Tests/Procedures Additional Instruction: Please return to emergency department if your symptoms return or worsen. Follow up with your primary care provider. Take vitamins. Please follow-up with her [employer] this week. Med/Other Pt SpecificInfo: Prescription(s) given Scripts Cephalexin (Keflex)500 Mg [id number] Mg PO Q6H 7 Days Ref 0 Prov:Katina Major MD 02/17/17 Disposition: 01 DISCHARGE HOME Condition: Stable Katina Major MD Feb 17, 2017 16:39
[2017-02-27] MEDS ORDERED: METR-1 PO (13:29)
[2017-03-14] MEDS ORDERED: ONDA4TAB7 SL (15:55)
[2017-04-09] MEDS ORDERED: ONDA8TAB8 SL (14:13)
[2017-04-09] MEDS ORDERED: RANI150T PO (14:13)
[2017-04-09] MEDS ORDERED: PREN1CHW7 PO (14:19)
[2017-05-06] MEDS ORDERED: NITR1CAP36 PO (14:13)
== END 2017-02-17 17:37 | disposition home or self-care (01) ==
LOC: NEPC 11:59
DX: O46.91 Antepartum hemorrhage, unspecified, first trimester (principal); O23.41 Unspecified infection of urinary tract in pregnancy, first trimester; B96.89 Other specified bacterial agents as the cause of diseases classified elsewhere; O99.331 Smoking (tobacco) complicating pregnancy, first trimester; F17.210 Nicotine dependence, cigarettes, uncomplicated; Z3A.08 8 weeks gestation of pregnancy
CPT/HCPCS: 76700; 80053; 81001; 84702; 84703; 85025; 87086; 90384; J2790

== ENCOUNTER 2017-02-21 12:00 | Emergency (ER) | payer OTHER ==
[~2017-02-21] VITALS: Ht 170.2 cm; Wt 67.3 kg
[~2017-02-21 12:00] MED LIST changes: +CEPH-460 PO
[2017-02-21 12:14] VITALS: BP 103/69; PULSE 69; RESP 16; TEMP 98.8; O2SAT 100
[2017-02-21] MEDS ORDERED: PREN29TA PO (12:26)
[2017-02-21] MEDS ORDERED: PENI250T59 PO (12:40)
--- NOTE | 2017-02-21 12:41 | PD ---
HPI Chief Complaint: Oral / Dental Pain or Problem Time Seen by Provider: 12:29 Travel History International Travel<30 days: No Contact w/Intl Traveler<30days: No Traveled to known affect area: No History of Present Illness HPI 21-year-old female complains of dental pain. Patient states the pain started several days ago. Patient states the pain started right upper gum with radiation to right side of face. Patient denies any fever chills. Patient is about 8 week . Patient denies abdominal pain or vaginal bleeding. On a scale of 1-10 the pain is a 10. Patient's on Keflex for UTI. PFSH Past Medical History Hx Anticoagulant Therapy: No ADHD: No Anemia: Yes Autoimmune Disease: No Bipolar Disorder: Yes Weight (Kg): 3 Anxiety: Yes Depression: Yes Cardiovascular Problems: No Diabetes: No Diminished Hearing: No Gastrointestinal Disorders: Yes Genitourinary: No Headaches: Yes Musculoskeletal: Yes (CHRONIC LEFT ARM PAIN) Neurologic: No Psychiatric: Yes Respiratory: No Immunizations Current: Yes Migraines: Yes Seizures: No Thyroid Disease: No Ulcer: No Tetanus Vaccination: < 5 Years Influenza Vaccination: No ?: LMP: 12/13/16 : 2 Para: 1 Miscarriage: 0 : 0 Ovarian Cysts: Yes (Left) Past Surgical History Abdominal Surgery: Yes (appendectomy 2008) Appendectomy: Yes Section: Yes Cholecystectomy: No Gynecologic Surgery: Yes (removal ovarian cyst 2008) Hysterectomy: Yes (L SIDE ONLY ) Other Surgery: Yes (01/30-OVARIAN CYSTS , ovary and torsion) Social History Alcohol Use: Yes (denies at present) Tobacco Use: Yes (2) Substance Use: No Allergies-Medications (Allergen,Severity, Reaction): Coded Allergies: Bees (Verified Allergy, Severe, 02/21/17) Morphine (Verified Adverse Reaction, Intermediate, Nausea/Vomiting, ) Uncoded Allergies: STRAWBERRIES (Allergy, Unknown, 09/09/16) . LACTOSE INTOLERANT (Adverse Reaction, Unknown, 09/09/16) . Reported Meds & Prescriptions Reported Meds & Active Scripts Active Magic Mouthwash Adult Liq (Multi-Ingredient Mouthwash/Gargle) 120 Ml Susp 10 Ml SWISH-SWAL ACHS Each 5mL contains: Nystatin 200,000units, Diphenhydramine 4.25mg, Viscous Lidocaine 10mg, Andre syrup 0.8 mL Penicillin Vk (Penicillin V Potassium) 250 Mg Tab 500 Mg PO Q6H 10 Days Reported Keflex (Cephalexin) 500 Mg Cap 500 Mg PO Q6H Plus Iron 29-1 mg ( Vit-Iron Carbonyl) Unknown Strength Tab Unknown Dose PO DAILY Review of Systems General / Constitutional: No: Fever Eyes: No: Visual changes HENT: No: Headaches Cardiovascular: No: Chest Pain or Discomfort Respiratory: No: Shortness of Breath Gastrointestinal: No: Abdominal Pain Genitourinary: No: Dysuria Musculoskeletal: No: Pain Skin: No Rash Neurologic: No: Weakness Psychiatric: No: Depression Endocrine: No: Polydipsia Hematologic/Lymphatic: No: Easy Bruising Physical Exam Narrative GENERAL: Well-nourished, well-developed patient. SKIN: Focused skin assessment warm/dry. HEAD: Normocephalic. EYES: No scleral icterus. No injection or drainage. NECK: Supple, trachea midline. No JVD or lymphadenopathy. CARDIOVASCULAR: Regular rate and rhythm without murmurs, gallops, or rubs. RESPIRATORY: Breath sounds equal bilaterally. No accessory muscle use. GASTROINTESTINAL: Abdomen soft, non-tender, nondistended. MUSCULOSKELETAL: No cyanosis, or edema. BACK: Nontender without obvious deformity. No CVA tenderness. Patient has severe dental caries right upper gum. No soft tissue swelling noted. No evidence of abscess. Data Data Last Documented VS Vital Signs Date Time Temp Pulse Resp B/P Pulse Ox O2 Delivery O2 Flow Rate FiO2 02/21/17 12:22 16 02/21/17 12:14 98.8 69 103/69 100 MDM Medical Decision Making Medical Screen Exam Complete: Yes Emergency Medical Condition: Yes Differential Diagnosis Differential diagnosis including dental pain, dental abscess. Narrative Course 21-year-old female with dental pain Diagnosis Primary Impression: Pain, dental Patient Instructions: General Instructions Additional Instructions: Pen-Vee K as directed. Follow-up with a dentist. Tylenol for pain. Med/Other Pt SpecificInfo: Prescription(s) given Scripts Penicillin V Potassium (Penicillin Vk)250 Mg [id number] Mg PO Q6H 10 Days Ref 0 Prov:Eitan Chris MD 02/21/17 Disposition: 01 DISCHARGE HOME Condition: Stable Eitan Chris MD Feb 21, 2017 12:40
[2017-02-21] MEDS ORDERED: CEPH-460 PO (14:42)
[2017-02-21] MEDS ORDERED: MAGICADU2 SWISH-SWAL (15:03)
[2017-02-27] MEDS ORDERED: METR-1 PO (13:29)
[2017-03-14] MEDS ORDERED: ONDA4TAB7 SL (15:55)
[2017-04-09] MEDS ORDERED: RANI150T PO (14:13)
[2017-04-09] MEDS ORDERED: ONDA8TAB8 SL (14:13)
[2017-04-09] MEDS ORDERED: PREN1CHW7 PO (14:19)
[2017-05-06] MEDS ORDERED: NITR1CAP36 PO (14:13)
== END 2017-02-21 12:46 | disposition home or self-care (01) ==
LOC: PHEFT 12:00
DX: K08.89 Other specified disorders of teeth and supporting structures (principal)
CPT/HCPCS: 99282

== ENCOUNTER 2017-05-22 12:13 | Emergency (ER) | payer MEDICAID, OTHER ==
[~2017-05-22 12:13] MED LIST changes: -CEPH-460 PO; +NITR1CAP36 PO; +ONDA8TAB8 SL; +PREN1CHW7 PO; +PREN29TA PO; +RANI150T PO; -ZOFR4TAB3 SL
[2017-05-22 12:17] VITALS: BP 109/67; PULSE 78; RESP 18; TEMP 98.3; O2SAT 100
--- NOTE | 2017-05-22 12:41 | PD ---
HPI Chief Complaint: Skin Problem Time Seen by Provider: 12:15 Travel History International Travel<30 days: No Contact w/Intl Traveler<30days: No Traveled to known affect area: No History of Present Illness HPI 22-year-old 23 week female presents to the emergency room for evaluation of itchy rash started on her abdomen has begun to spread to her leg and neck. Patient has been taking Benadryl and applying creams without relief in symptoms. States it is most severely itchy at night; it wakes her from her sleep. Patient states her jerson sleeps in the same bed as her and does not have the symptoms. She does note that her jerson's friend often lies in their bed to play video games and was recently diagnosed with bedbugs and has large lesions throughout his body. She states the baby is moving normally. Denies vaginal discharge or bleeding. Her next OB appointment is 06/04/2017. She denies abdominal pain. Reports hyperemesis gravidarum. PFSH Past Medical History Hx Anticoagulant Therapy: No ADHD: No Anemia: Yes Autoimmune Disease: No Bipolar Disorder: Yes Weight (Kg): 3 Anxiety: Yes Depression: Yes Cardiovascular Problems: No Diabetes: No Diminished Hearing: No Gastrointestinal Disorders: Yes Genitourinary: No Headaches: Yes Musculoskeletal: Yes (CHRONIC LEFT ARM PAIN) Neurologic: No Psychiatric: Yes Respiratory: No Immunizations Current: Yes Migraines: Yes Seizures: No Thyroid Disease: No Ulcer: No Influenza Vaccination: No ?: : 2 Para: 1 Miscarriage: 0 : 0 Ovarian Cysts: Yes (Left) Past Surgical History Abdominal Surgery: Yes (appendectomy 2008) Appendectomy: Yes Section: Yes Cholecystectomy: No Gynecologic Surgery: Yes (removal ovarian cyst 2008) Hysterectomy: Yes (L SIDE ONLY ) Other Surgery: Yes (01/30-OVARIAN CYSTS , ovary and torsion) Social History Alcohol Use: No (denies at present) Tobacco Use: Yes (2 ppd) Substance Use: No Allergies-Medications (Allergen,Severity, Reaction): Coded Allergies: Bees (Verified Allergy, Severe, 05/22/17) Morphine (Verified Adverse Reaction, Intermediate, Nausea/Vomiting, ) Uncoded Allergies: STRAWBERRIES (Allergy, Unknown, 09/09/16) . LACTOSE INTOLERANT (Adverse Reaction, Unknown, 09/09/16) . Reported Meds & Prescriptions Reported Meds & Active Scripts Active Prednisone 20 Mg Tab 20 Mg PO DAILY 5 Days Vitafol Gummies 3.33-0.333-34.8 mg ( Vit W/ Ferric Phospha) 1 Chw Chw 1 Chew PO DAILY Ranitidine (Ranitidine HCl) 150 Mg Tab 150 Mg PO BID Ondansetron Odt 8 Mg Tab 8 Mg SL Q8H PRN Reported Plus Iron 29-1 mg ( Vit-Iron Carbonyl) Unknown Strength Tab Unknown Dose PO DAILY Review of Systems Except as stated in HPI: all other systems reviewed are Neg Physical Exam Narrative GENERAL: Well-nourished, well-developed female in no acute distress. Afebrile. Ambulatory. SKIN: Focused skin assessment warm/dry. Multiple lightly erythematous, less than 2 mm maculopapular lesions throughout her abdomen, on right lower extremity , and on chest and back. No lesions on the hands or feet. HEAD: Normocephalic. EYES: No scleral icterus. No injection or drainage. NECK: Supple, trachea midline. No JVD or lymphadenopathy. CARDIOVASCULAR: Regular rate and rhythm without murmurs, gallops, or rubs. RESPIRATORY: Breath sounds equal bilaterally. No accessory muscle use. Data Data Last Documented VS Vital Signs Date Time Temp Pulse Resp B/P Pulse Ox O2 Delivery O2 Flow Rate FiO2 05/22/17 12:17 98.3 78 18 109/67 100 MDM Medical Decision Making Medical Screen Exam Complete: Yes Emergency Medical Condition: Yes Medical Record Reviewed: Yes Differential Diagnosis Pruritic urticarial papules and plaques of , folliculitis, scabies Narrative Course 22-year-old at 23 weeks female presents to the emergency room for evaluation of itchy rash that started on her abdomen and has since spread for the past 4 days. Patient denies any new environmental or food allergens. Has been applying [id number] medications without relief in symptoms. Symptoms do worsen pain. Physical exam reveals multiple lightly erythematous, less than 2 mm macular papular lesions throughout abdomen spreading to right lower leg, chest, and back. No burrowing, breakfast, lunch, or dinner signs. No excoriations. History and physical exam are consistent with PUPPP or allergic reaction. No concern for cholestasis. Patient will be treated with oral steroids for generalized rash and told to follow-up with her signal processing engineer. Told to return to the emergency room for worsening symptoms. She understands and agrees to plan. Diagnosis Primary Impression: Allergic reaction Qualified Code: T78.40XA - Allergic reaction, initial encounter Referrals: Chief Mechanical Officer Patient Instructions: General Allergic Reaction (ED), General Instructions Additional Instructions: Rest and drink plenty of fluids. Apply calamine lotion and cool compresses to help with symptoms. Take Benadryl as directed, as needed for itchiness. Follow-up with a your signal processing engineer. Return to the emergency room for worsening symptoms. Med/Other Pt SpecificInfo: Prescription(s) given Scripts Prednisone 20 Mg Tab20 Mg PO DAILY 5 Days Ref 0 Prov:Angela Rojo MD 05/22/17 Disposition: 01 DISCHARGE HOME Condition: Stable Fidelia Rivera May 22, 2017 12:41
[2017-05-22] MEDS ORDERED: PRED20 PO (12:52)
== END 2017-05-22 13:06 | disposition home or self-care (01) ==
LOC: PHED 12:13
DX: O26.892 Other specified pregnancy related conditions, second trimester (principal); T78.40XA Allergy, unspecified, initial encounter; X58.XXXA Exposure to other specified factors, initial encounter; Z3A.23 23 weeks gestation of pregnancy
CPT/HCPCS: 99283

== ENCOUNTER 2017-06-02 11:46 | Emergency (ER) | payer MEDICAID ==
[~2017-06-02] VITALS: Ht 172.7 cm; Wt 65.0 kg
[~2017-06-02 11:46] MED LIST changes: -NITR1CAP36 PO; +PRED20 PO
[2017-06-02 11:48] VITALS: BP 109/68; PULSE 76; RESP 17; TEMP 98.4; O2SAT 99
[2017-06-02] MEDS ORDERED: NORC5TAB PO (12:10)
[2017-06-02] MEDS ORDERED: PERI0.126 SWISH-SPIT (12:10)
[2017-06-02] MEDS ORDERED: PENI500T PO (12:10)
--- NOTE | 2017-06-02 12:11 | PD ---
HPI Chief Complaint: Oral / Dental Pain or Problem Time Seen by Provider: 11:58 Travel History International Travel<30 days: No Contact w/Intl Traveler<30days: No Traveled to known affect area: No History of Present Illness HPI The patient is a 22-year-old female who presents emergency department for dental pain. The patient states she is had intermittent dental pain for last several months, however, states the dentist will not remit the tooth because she is . The patient states she is currently 24 weeks , was advised not to take ibuprofen. The pain is located in left upper aspect of her mouth, sensitive to heat and cold, nonradiating, throbbing in nature. The patient did take Tylenol yesterday for her pain and also placed Orajel over the affected area, subsequently had one episode of nausea and vomiting after taking the Tylenol. The patient's symptoms are mild to moderate, there are no current alleviating or exacerbating factors. PFSH Past Medical History Hx Anticoagulant Therapy: No ADHD: No Anemia: Yes Autoimmune Disease: No Bipolar Disorder: Yes Weight (Kg): 3 Anxiety: Yes Depression: Yes Cardiovascular Problems: No Diabetes: No Diminished Hearing: No Gastrointestinal Disorders: Yes Genitourinary: No Headaches: Yes Musculoskeletal: Yes (CHRONIC LEFT ARM PAIN) Neurologic: No Psychiatric: Yes Respiratory: No Immunizations Current: Yes Migraines: Yes Seizures: No Thyroid Disease: No Ulcer: No Influenza Vaccination: No ?: LMP: 24 WEEKS : 2 Para: 1 Miscarriage: 0 : 0 Ovarian Cysts: Yes (Left) Past Surgical History Abdominal Surgery: Yes (appendectomy 2008) Appendectomy: Yes Section: Yes Cholecystectomy: No Gynecologic Surgery: Yes (removal ovarian cyst 2008) Hysterectomy: No (L SIDE OOPHORECTOMY) Other Surgery: Yes (01/30-OVARIAN CYSTS , ovary and torsion) Social History Alcohol Use: No (denies at present) Tobacco Use: Yes (11/26 ppd) Substance Use: No Allergies-Medications (Allergen,Severity, Reaction): Coded Allergies: Bees (Verified Allergy, Severe, 06/02/17) Morphine (Verified Adverse Reaction, Intermediate, Nausea/Vomiting, 06/02/17 ) Uncoded Allergies: STRAWBERRIES (Allergy, Unknown, 06/02/17) LACTOSE INTOLERANT (Adverse Reaction, Unknown, 06/02/17) Reported Meds & Prescriptions Reported Meds & Active Scripts Active Vitafol Gummies 3.33-0.333-34.8 mg ( Vit W/ Ferric Phospha) 1 Chw Chw 1 Chew PO DAILY Reported Plus Iron 29-1 mg ( Vit-Iron Carbonyl) Unknown Strength Tab Unknown Dose PO DAILY Review of Systems General / Constitutional: No: Fever HENT: Positive: Dental Difficulties Gastrointestinal: Positive: Vomiting Genitourinary: Positive: Other (24 weeks ) Physical Exam Narrative GENERAL: Awake, alert, nontoxic-appearing 22-year-old female who appears her stated age and is in no acute respiratory distress. SKIN: Focused skin assessment warm/dry. HEAD: Atraumatic. Normocephalic. EYES: Pupils equal and round. No scleral icterus. No injection or drainage. ENT: No nasal bleeding or discharge. Examination the oropharynx reveals poor dentition. The patient has a molar the left upper posterior aspect which reveals a large central cavity, no obvious swelling along the gumline or palpable abscess. NECK: Trachea midline. No JVD. MUSCULOSKELETAL: No obvious deformities. No clubbing. No cyanosis. No edema. NEUROLOGICAL: Awake and alert. No obvious cranial nerve deficits. Motor grossly within normal limits. Normal speech. PSYCHIATRIC: Appropriate mood and affect; insight and judgment normal. Data Data Last Documented VS Vital Signs Date Time Temp Pulse Resp B/P Pulse Ox O2 Delivery O2 Flow Rate FiO2 06/02/17 11:48 98.4 76 17 109/68 99 MDM Medical Decision Making Medical Screen Exam Complete: Yes Emergency Medical Condition: Yes Medical Record Reviewed: Yes Differential Diagnosis Differential diagnosis includes odontalgia, dental abscess, pericarditis, ANUG. Narrative Course The patient will be placed on Pen-Vee K and [place] for pain, she is in the third trimester, therefore, NSAIDs are contraindicated. The patient is advised not to take more than 2-3 g of Tylenol in 24 hours. She is also 5 to follow-up with a dentist for definitive care. The patient will be placed on Peridex after she finishes the Pen-Vee K. Diagnosis Primary Impression: Odontalgia Patient Instructions: General Instructions Additional Instructions: Medications as directed. Follow-up with a dentist. Med/Other Pt SpecificInfo: Prescription(s) given Scripts Hydrocodone-Acetaminophen ([place])5-325 mg Tab1 Tab PO Q6H PRN (PAIN) #15 TAB Ref 0 Prov:Sal Monson MD 06/02/17 Chlorhexidine Gluconate (Mouth) Liq (Peridex Liq)0.12% Soln15 Ml SWISH-SPIT BID #473 ML Ref 0 Prov:Sal Monson MD 06/02/17 Penicillin V Potassium 500 Mg Ojh420 Mg PO Q6H 10 Days Ref 0 Prov:Sal Monson MD 06/02/17 Disposition: 01 DISCHARGE HOME Condition: Stable Sal Monson MD Jun 02, 2017 12:10
== END 2017-06-02 12:18 | disposition home or self-care (01) ==
LOC: PHED 11:46
DX: O99.89 Other specified diseases and conditions complicating pregnancy, childbirth and the puerperium (principal); K08.89 Other specified disorders of teeth and supporting structures; R11.2 Nausea with vomiting, unspecified; Z86.2 Personal history of diseases of the blood and blood-forming organs and certain disorders involving the immune mechanism; Z86.59 Personal history of other mental and behavioral disorders; Z87.19 Personal history of other diseases of the digestive system; Z87.39 Personal history of other diseases of the musculoskeletal system and connective tissue; Z3A.24 24 weeks gestation of pregnancy
CPT/HCPCS: 99284

== ENCOUNTER → 2017-06-18 | Outpatient (CLI) | payer MEDICAID ==
[~2017-06-18] MED LIST changes: +NORC5TAB PO; -ONDA8TAB8 SL; +PENI500T PO; +PERI0.126 SWISH-SPIT; -PRED20 PO; -RANI150T PO
== END ==
LOC: HPND 12:42
PROVIDERS: ATTEND Obstetrics & Gynecology
DX: O26.842 Uterine size-date discrepancy, second trimester (principal); O36.5920 Maternal care for other known or suspected poor fetal growth, second trimester, not applicable or unspecified; Z3A.25 25 weeks gestation of pregnancy
CPT/HCPCS: 76816

== ENCOUNTER 2017-07-12 11:20 | Emergency (ER) | payer MEDICAID ==
[~2017-07-12 11:20] MED LIST changes: -NORC5TAB PO; -PENI500T PO; -PERI0.126 SWISH-SPIT; +TERC0.4C2 VAGINAL
[2017-07-12] MEDS ORDERED: SODIUM CHLOR 0.9% 1000 ML INJ 1,000 ML IV ONE (11:33)
[2017-07-12 11:35] VITALS: BP 109/64; PULSE 114; RESP 24; TEMP 98.2; O2SAT 100
[2017-07-12 11:53] LABS: AUTOMATED NEUTROPHIL # 8.4 TH/MM3 (1.8-7.7); BASOPHIL % 0.4 % (0.0-2.0); EOSINOPHIL % 0.1 % (0.0-4.0); HEMATOCRIT 31.5 % (35.0-46.0); HEMO FLAGS DIFF FINAL; LYMPH % 16.3 % (9.0-44.0); LYMPHOCYTE # 1.8 TH/MM3 (1.0-4.8); MEAN CELL VOLUME 91.5 FL (80.0-100.0); MEAN CORPUSCULAR HEMOGLOBIN 31.6 PG (27.0-34.0); MEAN CORPUSCULAR HGB CONC 34.5 % (32.0-36.0); MONO % 6.3 % (0.0-8.0); NEUT % 76.9 % (16.0-70.0); PLATELET COUNT 183 TH/MM3 (150-450); RED BLOOD COUNT 3.45 MIL/MM3 (4.00-5.30); RED CELL DISTRIBUTION WIDTH 11.2 % (11.6-17.2); WHITE BLOOD COUNT 10.9 TH/MM3 (4.0-11.0)
--- NOTE | 2017-07-12 11:59 | PD ---
HPI Chief Complaint: Related Problem Time Seen by Provider: 11:33 Travel History International Travel<30 days: No Contact w/Intl Traveler<30days: No Traveled to known affect area: No History of Present Illness HPI The patient's 22 years old. She is 2 para 1, 29 weeks. She follows with Dr. Little of obstetrics. Yesterday evening at about 4 PM she developed pain in her abdomen, sudden in onset. The pain came and went for some time. The patient fell sleep around 9 PM and then was kept up most of the night due to the intermittent abdominal pain. This morning, at 9 AM, the pain became sudden and she came to the ER for evaluation. She's had no vaginal bleeding. She fell no discharge of fluid. She reports currently being treated for a vaginal candidiasis. She reports some pain in the right abdomen primarily in some pain in the right back. She reports that within the month of June and more than a week ago a urinalysis was obtained and she did not have a UTI. She has had no vaginal bleeding. No vomiting or fever reported. Patient reports that her prior vaginal delivery was induced evidently because she had a respiratory infection on the same date as her due date. Patient reports vaginal pain and back pain as well. PFSH Past Medical History Hx Anticoagulant Therapy: No ADHD: No Anemia: Yes Autoimmune Disease: No Bipolar Disorder: Yes Weight (Kg): 3 Anxiety: Yes Depression: Yes Cardiovascular Problems: No Diabetes: No Diminished Hearing: No Gastrointestinal Disorders: Yes Genitourinary: No Headaches: Yes Musculoskeletal: Yes (CHRONIC LEFT ARM PAIN) Neurologic: No Psychiatric: Yes Respiratory: No Immunizations Current: Yes Migraines: Yes Seizures: No Thyroid Disease: No Ulcer: No ?: : 2 Para: 1 Miscarriage: 0 : 0 Ovarian Cysts: Yes (Left) Past Surgical History Abdominal Surgery: Yes (appendectomy 2008) Appendectomy: Yes Section: Yes Cholecystectomy: No Gynecologic Surgery: Yes (removal ovarian cyst 2008) Hysterectomy: No (L SIDE OOPHORECTOMY) Other Surgery: Yes (01/30-OVARIAN CYSTS , ovary and torsion) Social History Alcohol Use: No (denies at present) Tobacco Use: Yes (11/26 ppd) Substance Use: No Allergies-Medications (Allergen,Severity, Reaction): Coded Allergies: bee venom protein (honey bee) (Unverified Allergy, Severe, 07/09/17) morphine (Unverified Adverse Reaction, Intermediate, Nausea/Vomiting, 07/09) Uncoded Allergies: STRAWBERRIES (Allergy, Unknown, 06/02/17) LACTOSE INTOLERANT (Adverse Reaction, Unknown, 06/02/17) Reported Meds & Prescriptions Reported Meds & Active Scripts Active Terconazole Vaginal Cream 0.4 % Cream 1 Appl VAGINAL HS For seven days Vitafol Gummies 3.33-0.333-34.8 mg ( Vit W/ Ferric Phospha) 1 Chw Chw 1 Chew PO DAILY Review of Systems Except as stated in HPI: all other systems reviewed are Neg Physical Exam Narrative GENERAL: 22-year-old female well-nourished well-developed moderate distress. GENITOURINARY: Cervix is soft. Os is approximately 1 cm or less. SKIN: Warm and dry. HEAD: Atraumatic. Normocephalic. EYES: Pupils equal and round. No scleral icterus. No injection or drainage. ENT: No nasal bleeding or discharge. Mucous membranes pink and moist. NECK: Trachea midline. No JVD. CARDIOVASCULAR: Regular rate and rhythm. RESPIRATORY: No accessory muscle use. Clear to auscultation. Breath sounds equal bilaterally. GASTROINTESTINAL: Soft. Tenderness palpation suprapubic abdomen and right abdomen. Positive tenderness to percussion right flank. MUSCULOSKELETAL: Extremities without clubbing, cyanosis, or edema. No obvious deformities. NEUROLOGICAL: Awake and alert. No obvious cranial nerve deficits. Motor grossly within normal limits. Five out of 5 muscle strength in the arms and legs. Normal speech. PSYCHIATRIC: Appropriate mood and affect; insight and judgment normal. Data Data Last Documented VS Vital Signs Date Time Temp Pulse Resp B/P Pulse Ox O2 Delivery O2 Flow Rate FiO2 07/12/17 12:30 79 16 108/61 98 Room Air 07/12/17 11:35 98.2 Vital signs reviewed Orders Complete Blood Count With Diff (07/12/17 11:33) Comprehensive Metabolic Panel (07/12/17 11:33) Urinalysis - C+S If Indicated (07/12/17 11:33) Sodium Chlor 0.9% 1000 Ml Inj (Ns 1000 M (07/12/17 11:33) Ed Poc Ultrasound (07/12/17 11:33) Lipase (07/12/17 11:33) Admit Order (Ed Use Only) (07/12/17 11:47) Urine Culture (07/12/17 11:51) Vital Signs (Adult) .ON ADMISSION (07/12/17 13:48) ^ Labor Status (07/12/17 13:48) ^ Hydration (07/12/17 13:48) Admit To Inpatient (07/12/17 ) Diet Regular Basic (07/12/17 Lunch) Vital Signs (Adult) FRANCIS.A1F-XAWLI AWAKE (07/12/17 13:53) Heart FRANCIS.QSHIFT (07/12/17 13:53) ^ Monitor (07/12/17 13:53) Activity Oob Ad Sharla (07/12/17 13:53) Lactated Ringer's 1000 Ml Inj (Lr 1000 M (07/12/17 13:53) Acetaminophen (Tylenol) (07/12/17 14:00) Rvfpjhjz-Ctq-Ucopr-Iron Prenat (Stuartna (07/13/17 09:00) Sodium Chloride 0.9% Flush (Ns Flush) (07/12/17 21:00) Sodium Chloride 0.9% Flush (Ns Flush) (07/12/17 14:00) Zolpidem (Ambien) (07/12/17 14:00) Ondansetron Odt (Zofran Odt) (07/12/17 14:00) Ob/Psych Drug Screen, Urine (07/12/17 13:53) Ferrous Sulfate (Ferrous Sulfate) (07/12/17 21:00) Inpatient Certification (07/12/17 ) Cefazolin Inj (Ancef Inj) (07/12/17 16:00) [place] Discharge (07/12/17 ) Ur Bath Salts (07/12/17 11:51) Ur Heroin (07/12/17 11:51) Ur K2 Spice (07/12/17 11:51) Ur Ecstasy (07/12/17 11:51) Phencyclidine Urine (Pcp) (07/12/17 11:51) Labs Laboratory Tests Test 07/12/17 07/12/17 11:30 11:51 White Blood Count 10.9 TH/MM3 Red Blood Count 3.45 MIL/MM3 Hemoglobin 10.9 GM/DL Hematocrit 31.5 % Mean Corpuscular Volume 91.5 FL Mean Corpuscular Hemoglobin 31.6 PG Mean Corpuscular Hemoglobin 34.5 % Concent Red Cell Distribution Width 11.2 % Platelet Count 183 TH/MM3 Mean Platelet Volume 8.7 FL Neutrophils (%) (Auto) 76.9 % Lymphocytes (%) (Auto) 16.3 % Monocytes (%) (Auto) 6.3 % Eosinophils (%) (Auto) 0.1 % Basophils (%) (Auto) 0.4 % Neutrophils # (Auto) 8.4 TH/MM3 Lymphocytes # (Auto) 1.8 TH/MM3 Monocytes # (Auto) 0.7 TH/MM3 Eosinophils # (Auto) 0.0 TH/MM3 Basophils # (Auto) 0.0 TH/MM3 CBC Comment DIFF FINAL Differential Comment Sodium Level 136 MEQ/L Potassium Level 3.5 MEQ/L Chloride Level 103 MEQ/L Carbon Dioxide Level 23.3 MEQ/L Anion Gap 10 MEQ/L Blood Urea Nitrogen 5 MG/DL Creatinine 0.57 MG/DL Estimat Glomerular Filtration 133 ML/MIN Rate Random Glucose 80 MG/DL Calcium Level 9.2 MG/DL Total Bilirubin 0.4 MG/DL Aspartate Amino Transf 14 U/L (AST/SGOT) Alanine Aminotransferase 12 U/L (ALT/SGPT) Alkaline Phosphatase 94 U/L Total Protein 7.6 GM/DL Albumin 3.1 GM/DL Lipase 70 U/L Urine Collection Type CLEAN CATCH Urine Color YELLOW Urine Turbidity MOD Urine pH 8.5 Urine Specific [place] 1.011 Urine Protein 30 mg/dL Urine Glucose (UA) NEG mg/dL Urine Ketones 15 mg/dL Urine Occult Blood TRACE Urine Nitrite POS Urine Bilirubin NEG Urine Leukocyte Esterase LARGE Urine RBC 10-14 /hpf Urine WBC INNUM /hpf Urine WBC Clumps MOD Urine Squamous Epithelial 6-8 /hpf Cells Urine Bacteria MANY /hpf Microscopic Urinalysis Comment CULTURE INDICATED Urine Collection Time 11:51 Urine Opiates Screen NEG Urine Barbiturates Screen NEG Urine Amphetamines Screen NEG Urine Benzodiazepines Screen NEG Urine Cocaine Screen NEG Urine Cannabinoids Screen POS [facility] Medical Decision Making Medical Screen Exam Complete: Yes Emergency Medical Condition: Yes Medical Record Reviewed: Yes Differential Diagnosis Delivery, preeclampsia, eclampsia, abruptio placentae, UTI, pyelonephritis, STD , hepatobiliary disease Narrative Course heart tones reveal a rate of 160. movements were observed. The patient's nurse felt what she believes to have been contraction. Initial blood work including CBC and CMP and urinalysis started. IV started along with monitoring. Patient ambulated to the bathroom without difficulty. Upon return at approximately 11:50 AM. She returns complaining of pain and pressure in the vaginal distribution. At 11:57 AM she felt what she believes to have been another contraction. The case was discussed with Dr. Padilla of obstetrics who advised immediate transport to the obstetrics emergency room. The transport was arranged at 11: 50 AM with a call to EMS at that time as stat. A "admit" order was placed under same daycare to the labor and delivery floor to allow for the stat transfer. [facility] arrived at 1231PM. Diagnosis Primary Impression: Premature uterine contractions Admitting Information Admitting Physician Requests: Observation Luigi Campos MD Jul 12, 2017 11:59
[2017-07-12 12:00] LABS: CHLORIDE 103 MEQ/L (98-107); POTASSIUM 3.5 MEQ/L (3.5-5.1); SODIUM (NA) 136 MEQ/L (136-145)
[2017-07-12 12:01] LABS: BLOOD, URINE TRACE (NEG); GLUCOSE,URINE NEG (NEG); KETONE, URINE 15 mg/dL (NEG); PH, URINE 8.5 (5.0-8.5)
[2017-07-12 12:03] LABS: ANION GAP 10 MEQ/L (5-15); BICARBONATE 23.3 MEQ/L (21.0-32.0); BLOOD UREA NITROGEN 5 MG/DL (7-18)
[2017-07-12 12:05] LABS: NITRITE,URINE POS (NEG)
[2017-07-12 12:06] LABS: BACTERIA, URINE MANY /hpf; COMMENT (UR) CULTURE INDICATED; CULTURE IF INDICATED CULTURE INDICATED; METHOD OF COLLECTION CLEAN CATCH; URINE COLOR YELLOW (YELLW/STRAW); WBC, URINE INNUM /hpf (0-5)
[2017-07-12 12:06] LABS: ALT (GPT) 12 U/L (10-53); AST (GOT) 14 U/L (15-37); GLOMERULAR FILTRATION RATE 133 ML/MIN (>89)
[2017-07-12 12:07] LABS: TOTAL BILIRUBIN ADULT 0.4 MG/DL (0.2-1.0)
[2017-07-12 12:09] LABS: ALKALINE PHOSPHATASE 94 U/L (45-117)
[2017-07-12 12:30] VITALS: BP 108/61; PULSE 79; RESP 16; O2SAT 98
[2017-07-12] MEDS ORDERED: LACTATED RINGER'S 1000 ML INJ 1,000 ML IV SCH (13:53)
[2017-07-12] MEDS ORDERED: ACETAMINOPHEN 325 MG TAB PO PRN (14:00)
[2017-07-12] MEDS ORDERED: ONDANSETRON ODT 4 MG TAB PO PRN (14:00)
[2017-07-12] MEDS ORDERED: SODIUM CHLORIDE 0.9% FLUSH 10 ML FLUSH IV FLUSH PRN (14:00)
[2017-07-12] MEDS ORDERED: ZOLPIDEM TARTRATE 5 MG TAB PO PRN (14:00)
--- NOTE | 2017-07-12 14:08 | PD ---
HPI Chief Complaint Abdominal pain Date Seen: Jul 12, 2017 Travel History International Travel<30 Days: No Contact w/Intl Traveler<30Days: No Known Affected Area: No History of Present Illness HPI Patient is a 22-year-old at 28-6/7 weeks gestation who presents today for abdominal pain. Pain started last night and is described as a sharp pain in her left side than her right side. The pain is on and off. She also notes contractions that occur every 30 minutes and last 34 minutes. She also notes a constant right lower back pain that radiates to her groin. His any vaginal bleeding or discharge, no gush or leaking of fluid, positive movement. care with [facility]. History Past Medical History Narrative Medical Hyperemesis gravidarum Anxiety Obstetric History Obstetric History at term with hemorrhage Past Surgical History Narrative Surgical Ovarian cyst drainage 2 Family History Family History: Negative Social History Alcohol Use: No Tobacco Use: Yes (3 cigarettes per day) Substance Abuse: No Allergies-Medications (Allergen,Severity, Reaction): Coded Allergies: bee venom protein (honey bee) (Unverified Allergy, Severe, 07/09/17) morphine (Unverified Adverse Reaction, Intermediate, Nausea/Vomiting, 07/09) Uncoded Allergies: STRAWBERRIES (Allergy, Unknown, 06/02/17) LACTOSE INTOLERANT (Adverse Reaction, Unknown, 06/02/17) Home Meds Active Scripts Terconazole Vaginal Cream 0.4 % Cream1 Appl VAGINAL HS #45 GM Ref 0 For seven days Prov:Lynnette Sellers JACKAROO 07/08/17 Vit W/ Ferric Phospha (Vitafol Gummies 3.33-0.333-34.8 mg)1 Chw Chw1 Chew PO DAILY #60 BOTTLE Ref 4 Prov:Devorah Swift CNM JACKAROO 04/09/17 Discontinued Reported Medications Vit-Iron Carbonyl ( Plus Iron 29-1 mg)Unknown Strength TabUnknown Dose PO DAILY #30 TAB Ref 0 02/21/17 Review of Systems Except as stated in HPI: all other systems reviewed are Neg General / Constitutional: Chills, No: Fever Eyes: No: Blurred Vision HENT: No: Headaches Cardiovascular: No: Chest Pain or Discomfort, Palpitations Respiratory: No: Cough, Short of Breath Gastrointestinal: Nausea, Vomiting, Abdominal Pain, No: Loss of Appetite Genitourinary: Hematuria, Pelvic Pain, No: Dysuria, Discharge, Vaginal Bleeding Musculoskeletal: No: Edema Psychiatric: No: Substance Abuse Physical Exam Vital Signs Date Time Temp Pulse Resp B/P Pulse Ox O2 Delivery O2 Flow Rate FiO2 07/12/17 12:30 79 16 108/61 98 Room Air 07/12/17 11:38 24 07/12/17 11:35 98.2 114 24 109/64 100 Narrative GENERAL: Well-nourished, well-developed patient. SKIN: Warm and dry. HEAD: Normocephalic and atraumatic. EYES: No scleral icterus. No injection or drainage. ENT: No nasal drainage noted. Mucous membranes pink. Airway patent. NECK: Supple, trachea midline. No JVD. CARDIOVASCULAR: Regular rate and rhythm without murmurs, gallops, or rubs. RESPIRATORY: Breath sounds equal bilaterally. No accessory muscle use. ABDOMEN/GI: Abdomen soft, suprapubic tenderness, tenderness across lower abdomen , bowel sounds present Gravid to 28 weeks size GENITOURINARY: External Genitalia: intact and normal in appearance BUS glands: normal Cervix: posterior Dilatation: 0 Effacement: 0 Station: -3 Presentation: vertex Membranes: intact Uterine Contractions: none FHT's: Category: I Baseline: 153 Reactive: + Variability: moderate Decels: none EXTREMITIES: No cyanosis or edema. BACK: Nontender without obvious deformity. Right CVA tenderness. NEUROLOGICAL: Awake and alert. Motor and sensory grossly within normal limits. Normal speech. Data Data Vital Signs Reviewed: Yes Orders Complete Blood Count With Diff (07/12/17 11:33) Comprehensive Metabolic Panel (07/12/17 11:33) Urinalysis - C+S If Indicated (07/12/17 11:33) Sodium Chlor 0.9% 1000 Ml Inj (Ns 1000 M (07/12/17 11:33) Ed Poc Ultrasound (07/12/17 11:33) Lipase (07/12/17 11:33) Admit Order (Ed Use Only) (07/12/17 11:47) Urine Culture (07/12/17 11:51) Vital Signs (Adult) .ON ADMISSION (07/12/17 13:48) ^ Labor Status (07/12/17 13:48) ^ Hydration (07/12/17 13:48) Admit To Inpatient (07/12/17 ) Diet Regular Basic (07/12/17 Lunch) Vital Signs (Adult) FRANCIS.D6S-DAQOO AWAKE (07/12/17 13:53) Heart FRANCIS.QSHIFT (07/12/17 13:53) ^ Monitor (07/12/17 13:53) Activity Oob Ad Sharla (07/12/17 13:53) Complete Blood Count With Diff (07/13/17 06:00) Basic Metabolic Panel (Bmp) (07/13/17 06:00) Lactated Ringer's 1000 Ml Inj (Lr 1000 M (07/12/17 13:53) Acetaminophen (Tylenol) (07/12/17 14:00) Ikkmoxrl-Lsp-Pjoda-Iron Prenat (Stuartna (07/13/17 09:00) Sodium Chloride 0.9% Flush (Ns Flush) (07/12/17 21:00) Sodium Chloride 0.9% Flush (Ns Flush) (07/12/17 14:00) Zolpidem (Ambien) (07/12/17 14:00) Ondansetron Odt (Zofran Odt) (07/12/17 14:00) Ob/Psych Drug Screen, Urine (07/12/17 13:53) Ferrous Sulfate (Ferrous Sulfate) (07/12/17 21:00) Inpatient Certification (07/12/17 ) Cefazolin Inj (Ancef Inj) (07/12/17 14:00) Labs Laboratory Tests Test 07/12/17 07/12/17 11:30 11:51 White Blood Count 10.9 Red Blood Count 3.45 Hemoglobin 10.9 Hematocrit 31.5 Mean Corpuscular Volume 91.5 Mean Corpuscular Hemoglobin 31.6 Mean Corpuscular Hemoglobin 34.5 Concent Red Cell Distribution Width 11.2 Platelet Count 183 Mean Platelet Volume 8.7 Neutrophils (%) (Auto) 76.9 Lymphocytes (%) (Auto) 16.3 Monocytes (%) (Auto) 6.3 Eosinophils (%) (Auto) 0.1 Basophils (%) (Auto) 0.4 Neutrophils # (Auto) 8.4 Lymphocytes # (Auto) 1.8 Monocytes # (Auto) 0.7 Eosinophils # (Auto) 0.0 Basophils # (Auto) 0.0 CBC Comment DIFF FINAL Differential Comment Sodium Level 136 Potassium Level 3.5 Chloride Level 103 Carbon Dioxide Level 23.3 Anion Gap 10 Blood Urea Nitrogen 5 Creatinine 0.57 Estimat Glomerular Filtration 133 Rate Random Glucose 80 Calcium Level 9.2 Total Bilirubin 0.4 Aspartate Amino Transf 14 (AST/SGOT) Alanine Aminotransferase 12 (ALT/SGPT) Alkaline Phosphatase 94 Total Protein 7.6 Albumin 3.1 Lipase 70 Urine Collection Type CLEAN CATCH Urine Color YELLOW Urine Turbidity MOD Urine pH 8.5 Urine Specific [place] 1.011 Urine Protein 30 Urine Glucose (UA) NEG Urine Ketones 15 Urine Occult Blood TRACE Urine Nitrite POS Urine Bilirubin NEG Urine Leukocyte Esterase LARGE Urine RBC 10-14 Urine WBC INNUM Urine WBC Clumps MOD Urine Squamous Epithelial 6-8 Cells Urine Bacteria MANY Microscopic Urinalysis Comment CULTURE INDICATED Urine Collection Time 11:51 Date/Time Procedure Status Source Growth 07/12/17 11:51 Urine Culture Received Urine Clean Catch Pending MDM Medical Record Reviewed: Yes Narrative Course / MDM 22 year old at 28-6/7 weeks gestation. 1. IUP- Category I tracing, reassuring. 2. Pyelonephritis- UA significant for trace blood, positive nitrites, large leukocyte esterase, 1014 RBCs, innumerable WBCs, many bacteria Admit to inpatient Urine culture pending Will treat with Ancef 2 g IV Q8H LR @ 100mL/hr Zofran PRN nausea 3. contractions- No contractions on monitor 4. Anxiety- patient is aggressive and voices considerable distress at being admitted to the hospital. She threw objects at the nursing staff. She refuses any anti-anxiety medications. 5. Will obtain UDS due to belligerent behavior. sdw Dr. Padilla and Dr. Hernandez R1 Diagnosis Diagnosis: Primary Impression: Premature uterine contractions Naomy Pham MD, R3 Jul 12, 2017 14:07
--- NOTE | 2017-07-12 14:23 | HHI.HP ---
History & Physical H&P HPI Chief Complaint Abdominal pain Date Seen: Jul 12, 2017 Travel History International Travel<30 Days: No Contact w/Intl Traveler<30Days: No Known Affected Area: No History of Present Illness HPI Patient is a 22-year-old at 28-6/7 weeks gestation who presents today for abdominal pain. Pain started last night and is described as a sharp pain in her left side than her right side. The pain is on and off. She also notes contractions that occur every 30 minutes and last 34 minutes. She also notes a constant right lower back pain that radiates to her groin. His any vaginal bleeding or discharge, no gush or leaking of fluid, positive movement. care with [facility]. History (Limited) History Past Medical History Narrative Medical Hyperemesis gravidarum Anxiety Obstetric History Obstetric History at term with hemorrhage Past Surgical History Narrative Surgical Ovarian cyst drainage 2 Family History Family History: Negative Social History Alcohol Use: No Tobacco Use: Yes (3 cigarettes per day) Substance Abuse: No Allergies-Medications Allergies-Medications (Allergen,Severity, Reaction): Coded Allergies: bee venom protein (honey bee) (Unverified Allergy, Severe, 07/09/17) morphine (Unverified Adverse Reaction, Intermediate, Nausea/Vomiting, 07/09) Uncoded Allergies: STRAWBERRIES (Allergy, Unknown, 06/02/17) LACTOSE INTOLERANT (Adverse Reaction, Unknown, 06/02/17) Home Meds Active Scripts Terconazole Vaginal Cream 0.4 % Cream1 Appl VAGINAL HS #45 GM Ref 0 For seven days Prov:Lynnette Sellers 07/08/17 Vit W/ Ferric Phospha (Vitafol Gummies 3.33-0.333-34.8 mg)1 Chw Chw1 Chew PO DAILY #60 BOTTLE Ref 4 Prov:Devorah Swift CNMP 04/09/17 Discontinued Reported Medications Vit-Iron Carbonyl ( Plus Iron 29-1 mg)Unknown Strength TabUnknown Dose PO DAILY #30 TAB Ref 0 02/21/17 ROS Review of Systems Except as stated in HPI: all other systems reviewed are Neg General / Constitutional: Chills, No: Fever Eyes: No: Blurred Vision HENT: No: Headaches Cardiovascular: No: Chest Pain or Discomfort, Palpitations Respiratory: No: Cough, Short of Breath Gastrointestinal: Nausea, Vomiting, Abdominal Pain, No: Loss of Appetite Genitourinary: Hematuria, Pelvic Pain, No: Dysuria, Discharge, Vaginal Bleeding Musculoskeletal: No: Edema Psychiatric: No: Substance Abuse Physical Exam Physical Exam Vital Signs Date Time Temp Pulse Resp B/P Pulse Ox O2 Delivery O2 Flow Rate FiO2 07/12/17 12:30 79 16 108/61 98 Room Air 07/12/17 11:38 24 07/12/17 11:35 98.2 114 24 109/64 100 Narrative GENERAL: Well-nourished, well-developed patient. SKIN: Warm and dry. HEAD: Normocephalic and atraumatic. EYES: No scleral icterus. No injection or drainage. ENT: No nasal drainage noted. Mucous membranes pink. Airway patent. NECK: Supple, trachea midline. No JVD. CARDIOVASCULAR: Regular rate and rhythm without murmurs, gallops, or rubs. RESPIRATORY: Breath sounds equal bilaterally. No accessory muscle use. ABDOMEN/GI: Abdomen soft, suprapubic tenderness, tenderness across lower abdomen , bowel sounds present Gravid to 28 weeks size GENITOURINARY: External Genitalia: intact and normal in appearance BUS glands: normal Cervix: posterior Dilatation: 0 Effacement: 0 Station: -3 Presentation: vertex Membranes: intact Uterine Contractions: none FHT's: Category: I Baseline: 153 Reactive: + Variability: moderate Decels: none EXTREMITIES: No cyanosis or edema. BACK: Nontender without obvious deformity. Right CVA tenderness. NEUROLOGICAL: Awake and alert. Motor and sensory grossly within normal limits. Normal speech. Data Data Data Vital Signs Reviewed: Yes Orders Complete Blood Count With Diff (07/12/17 11:33) Comprehensive Metabolic Panel (07/12/17 11:33) Urinalysis - C+S If Indicated (07/12/17 11:33) Sodium Chlor 0.9% 1000 Ml Inj (Ns 1000 M (07/12/17 11:33) Ed Poc Ultrasound (07/12/17 11:33) Lipase (07/12/17 11:33) Admit Order (Ed Use Only) (07/12/17 11:47) Urine Culture (07/12/17 11:51) Vital Signs (Adult) .ON ADMISSION (07/12/17 13:48) ^ Labor Status (07/12/17 13:48) ^ Hydration (07/12/17 13:48) Admit To Inpatient (07/12/17 ) Diet Regular Basic (07/12/17 Lunch) Vital Signs (Adult) FRANCIS.B5L-QFOEN AWAKE (07/12/17 13:53) Heart FRANCIS.QSHIFT (07/12/17 13:53) ^ Monitor (07/12/17 13:53) Activity Oob Ad Sharla (07/12/17 13:53) Complete Blood Count With Diff (07/13/17 06:00) Basic Metabolic Panel (Bmp) (07/13/17 06:00) Lactated Ringer's 1000 Ml Inj (Lr 1000 M (07/12/17 13:53) Acetaminophen (Tylenol) (07/12/17 14:00) Zpcyheyh-Asv-Xertl-Iron Prenat (Stuartna (07/13/17 09:00) Sodium Chloride 0.9% Flush (Ns Flush) (07/12/17 21:00) Sodium Chloride 0.9% Flush (Ns Flush) (07/12/17 14:00) Zolpidem (Ambien) (07/12/17 14:00) Ondansetron Odt (Zofran Odt) (07/12/17 14:00) Ob/Psych Drug Screen, Urine (07/12/17 13:53) Ferrous Sulfate (Ferrous Sulfate) (07/12/17 21:00) Inpatient Certification (07/12/17 ) Cefazolin Inj (Ancef Inj) (07/12/17 14:00) Labs Laboratory Tests Test 07/12/17 07/12/17 11:30 11:51 White Blood Count 10.9 Red Blood Count 3.45 Hemoglobin 10.9 Hematocrit 31.5 Mean Corpuscular Volume 91.5 Mean Corpuscular Hemoglobin 31.6 Mean Corpuscular Hemoglobin 34.5 Concent Red Cell Distribution Width 11.2 Platelet Count 183 Mean Platelet Volume 8.7 Neutrophils (%) (Auto) 76.9 Lymphocytes (%) (Auto) 16.3 Monocytes (%) (Auto) 6.3 Eosinophils (%) (Auto) 0.1 Basophils (%) (Auto) 0.4 Neutrophils # (Auto) 8.4 Lymphocytes # (Auto) 1.8 Monocytes # (Auto) 0.7 Eosinophils # (Auto) 0.0 Basophils # (Auto) 0.0 CBC Comment DIFF FINAL Differential Comment Sodium Level 136 Potassium Level 3.5 Chloride Level 103 Carbon Dioxide Level 23.3 Anion Gap 10 Blood Urea Nitrogen 5 Creatinine 0.57 Estimat Glomerular Filtration 133 Rate Random Glucose 80 Calcium Level 9.2 Total Bilirubin 0.4 Aspartate Amino Transf 14 (AST/SGOT) Alanine Aminotransferase 12 (ALT/SGPT) Alkaline Phosphatase 94 Total Protein 7.6 Albumin 3.1 Lipase 70 Urine Collection Type CLEAN CATCH Urine Color YELLOW Urine Turbidity MOD Urine pH 8.5 Urine Specific [place] 1.011 Urine Protein 30 Urine Glucose (UA) NEG Urine Ketones 15 Urine Occult Blood TRACE Urine Nitrite POS Urine Bilirubin NEG Urine Leukocyte Esterase LARGE Urine RBC 10-14 Urine WBC INNUM Urine WBC Clumps MOD Urine Squamous Epithelial 6-8 Cells Urine Bacteria MANY Microscopic Urinalysis Comment CULTURE INDICATED Urine Collection Time 11:51 Date/Time Procedure Status Source Growth 07/12/17 11:51 Urine Culture Received Urine Clean Catch Pending MDM MDM Medical Record Reviewed: Yes Narrative Course / MDM 22 year old at 28-6/7 weeks gestation. 1. IUP- Category I tracing, reassuring. 2. Pyelonephritis- UA significant for trace blood, positive nitrites, large leukocyte esterase, 1014 RBCs, innumerable WBCs, many bacteria Admit to inpatient Urine culture pending Will treat with Ancef 2 g IV Q8H LR @ 100mL/hr Zofran PRN nausea 3. contractions- No contractions on monitor 4. Anxiety- patient is aggressive and voices considerable distress at being admitted to the hospital. She threw objects at the nursing staff. She refuses any anti-anxiety medications. 5. Will obtain UDS due to belligerent behavior. sdw Dr. Padilla and Dr. Hernandez R1 ADDENDUM: Counseling and education provided regarding importance of appropriate treatment of pyelonephritis during . All risks explained at length. Patient expresses understanding regarding all risks including worsening infection, labor, and possible or maternal demise and continues to remain adamant that she is going to leave AGAINST MEDICAL ADVICE. Naomy Pham MD, R3 Jul 12, 2017 14:23
[2017-07-12] MEDS ORDERED: FERROUS SULFATE 325 MG (65 MG ELEMENTAL IRON) TAB PO SCH (21:00)
[2017-07-12] MEDS ORDERED: SODIUM CHLORIDE 0.9% FLUSH 10 ML FLUSH IV FLUSH SCH (21:00)
[2017-07-13] MEDS ORDERED: MULTIVIT/MIN/PREN/FOL AC/IRON PRENATAL TAB PO SCH (09:00)
[2017-07-15] MEDS ORDERED: AMOX500C PO (08:42)
[2017-07-18 12:07] LABS: BATH SALTS (MDPV) UR NEG (NEG); ECSTASY (MDMA) UR NEG (NEG); GABAPENTIN UR NEG (NEG); HEROIN (6-ACETYLMORPHINE) UR NEG (NEG); HYDROMORPHONE U NEG (NEG); K2 SPICE UR NEG (NEG); OBMETHADONE UR NEG (NEG); PHENCYCLIDINE URINE NEG (NEG)
[2017-07-22] MEDS ORDERED: ZANTTAB PO (14:10)
[2017-08-27] MEDS ORDERED: PROC2.5C RECTAL (14:10)
[2017-09-02] MEDS ORDERED: AZIT500T2 PO (15:50)
[2017-09-16] MEDS ORDERED: NITR1CAP37 PO (14:14)
[2017-09-16] MEDS ORDERED: ZOFR8TAB4 SL (14:14)
[2017-09-16] MEDS ORDERED: FERRTAB2 PO (14:15)
== END 2017-07-12 15:50 | disposition left against medical advice (07) ==
LOC: PHED 11:20 → HOBED 15:50
DX: O23.03 Infections of kidney in pregnancy, third trimester (principal); B96.20 Unspecified Escherichia coli [E. coli] as the cause of diseases classified elsewhere; F41.9 Anxiety disorder, unspecified; F17.210 Nicotine dependence, cigarettes, uncomplicated; Z79.899 Other long term (current) drug therapy; Z3A.28 28 weeks gestation of pregnancy
CPT/HCPCS: 80053; 80307; 81001; 83690; 85025; 87077; 87086; 87186; 99285; G0481; J7030

== ENCOUNTER 2017-08-18 11:30 | Inpatient (IN) | payer MEDICAID ==
[~2017-08-18] VITALS: Ht 175.3 cm; Wt 69.0 kg
[~2017-08-18 11:30] MED LIST changes: +AMOX500C PO; -PREN29TA PO; +ZANTTAB PO
[2017-08-18] MEDS ORDERED: TERBUTALINE INJ 1 MG/ML AMP SQ PRN (12:15)
[2017-08-18] MEDS ORDERED: oxyCODONE/ACETAMINOPHEN 5 MG/325 MG TAB PO PRN (12:30)
[2017-08-18] MEDS ORDERED: SODIUM CHLORIDE 0.9% FLUSH 10 ML FLUSH IV FLUSH PRN (12:30)
[2017-08-18] MEDS ORDERED: ALUMINUM/MAGNESIUM/SIMETH 30 ML CUP PO PRN (12:30)
--- NOTE | 2017-08-18 12:39 | HHI.HP ---
HPI Chief Complaint Worsening back pain, fever in the night, nausea but no vomiting Date Seen: Aug 18, 2017 Time Seen: 12:30 Travel History International Travel<30 Days: No Contact w/Intl Traveler<30Days: No Known Affected Area: No History of Present Illness HPI 22-year-old white female at 34 weeks [facility] presents with increasing back pain nausea and fever. Patient states that in the middle night she checked her temperature was 102.5 she had night sweats and chills. Here today she is afebrile heart tones are reactive she is having a few contractions about every 5-6 minutes but does not feel movement has no abdominal pain only back pain on the right side. Patient states she had pyelonephritis earlier in this was hospitalized given antibiotics given another weeks worth outpatient but no suppression for the remainder dosing. Weeks Gestation: 34 Para: 1 : 2 History Obstetric History Obstetric History Patient's delivered one baby vaginally in the past This she has had bout of pyelonephritis previously that was cult + for E coli sensitive to everything Social History Alcohol Use: No Tobacco Use: No Substance Abuse: No Allergies-Medications (Allergen,Severity, Reaction): Coded Allergies: bee venom protein (honey bee) (Unverified Allergy, Severe, 07/22/17) morphine (Unverified Adverse Reaction, Intermediate, Nausea/Vomiting, 07/22) Uncoded Allergies: STRAWBERRIES (Allergy, Unknown, 06/02/17) LACTOSE INTOLERANT (Adverse Reaction, Unknown, 06/02/17) Home Meds Active Scripts Amoxicillin (Amoxicillin) 500 Mg Cap, 500 MG PO TID for Infection, #21 CAP 0 Refills Prov:Wilbert Nelson MD 07/15/17 Terconazole Vaginal Cream (Terconazole Vaginal Cream) 0.4 % Cream, 1 APPL VAGINAL HS for Fungal Infection, #45 GM 0 Refills For seven days Prov:Lynnette Sellers 07/08/17 Vit W/ Ferric Phospha (Vitafol Gummies 3.33-0.333-34.8 mg) 1 Chw Chw, 1 CHEW PO DAILY, #60 BOTTLE 4 Refills Prov:Devorah Swift CNM 04/09/17 Reported Medications Ranitidine (Zantac 150 Maximum Strength) 150 Mg Tab, 150 MG PO BID, TAB 07/22/17 Review of Systems General / Constitutional: No: Fever, Weight Gain, Chills, Other Eyes: No: Diploplia, Blurred Vision, Visual changes, Pain, Photophobia HENT: No: Headaches, Vertigo, Lightheadedness Cardiovascular: No: Irregular Rhythm, Chest Pain or Discomfort, Palpitations, Tachycardia, Syncope, Varicosities, Edema, Cyanosis Respiratory: No: Cough, Short of Breath, Other Gastrointestinal: Nausea, No: Vomiting, Diarrhea Genitourinary: No: Decreased Urinary Output, Oliguria Musculoskeletal: No: Limited ROM, Weakness, Cramping, Edema, Pain Skin: No Rash, No Itching, No Dryness, No Lumps, No Change in Pigmentation, No Change in Nails, No Alopecia, No Lesions Neurologic: No: Weakness, Dizziness, Syncope, Focal Abnormalities, Coordination Problem, Headache, Slurred Speech, Seizures Psychiatric: No: Depression, Suicidal Ideations, Homicidal Ideation Endocrine: No: Heat Intolerance, Cold Intolerance, Polydipsia, Polyuria, Other Physical Exam Narrative GENERAL: Well-nourished, well-developed patient. SKIN: Warm and dry. HEAD: Normocephalic and atraumatic. EYES: No scleral icterus. No injection or drainage. ENT: No nasal drainage noted. Mucous membranes pink. Airway patent. NECK: Supple, trachea midline. No JVD. CARDIOVASCULAR: Regular rate and rhythm without murmurs, gallops, or rubs. RESPIRATORY: Breath sounds equal bilaterally. No accessory muscle use. BREASTS: Bilateral exam showed no masses , no retractions, no nipple discharge. ABDOMEN/GI: Abdomen soft, non-tender, bowel sounds present, no rebound, no guarding Gravid to [-34] weeks size Fundal Height: [-34] GENITOURINARY: External Genitalia: intact and normal in appearance BUS glands: [-] Cervix: [-Posterior] Dilatation: [-] Closed Effacement: Thick [-] Station: [-3] Membranes: [intact ] Uterine Contractions: [-Irregular every 5-6 minutes] FHT's: Category: [1-] Baseline: [-133] Reactive: [-yes] Variability: [mod-] Decels: [none-] EXTREMITIES: No cyanosis or edema. BACK: Nontender without obvious deformity + RCVA tenderness. None on the left NEUROLOGICAL: Awake and alert. Motor and sensory grossly within normal limits. Five out of 5 muscle strength in all muscle groups. Normal speech. Caprini VTE Risk Assessment Caprini VTE Risk Assessment: No/Low Risk (score <= 1) Caprini Risk Assessment Model Point Value = 1 Point Value = 2 Point Value = 3 Point Value = 5 Age 41-60 Minor surgery BMI > 25 kg/m2 Swollen legs Varicose veins or History of unexplained or recurrent spontaneous Oral contraceptives or hormone replacement Sepsis (< 1 month) Serious lung disease, including pneumonia (< 1 month) Abnormal pulmonary function Acute myocardial infarction Congestive heart failure (< 1 month) History of inflammatory bowel disease Medical patient at bed rest Age 61-74 Arthroscopic surgery Major open surgery (> 45 min) Laparoscopic surgery (> 45 min) Malignancy Confined to bed (> 72 hours) Immobilizing plaster cast Central venous access Age >= 75 History of VTE Family history of VTE Factor V Leiden Prothrombin [id number] Lupus anticoagulant Anticardiolipin antibodies Elevated serum homocysteine Heparin-induced thrombocytopenia Other congenital or acquired thrombophilia Stroke (< 1 month) Elective arthroplasty Hip, pelvis, or leg fracture Acute spinal cord injury (< 1 month) Prophylaxis Regimen Total Risk Factor Score Risk Level Prophylaxis Regimen 0-1 Low Early ambulation 2 Moderate Order ONE of the following: *Sequential Compression Device (SCD) *Heparin 5000 units SQ BID 3-4 Higher Order ONE of the following medications: *Heparin 5000 units SQ TID *Enoxaparin/Lovenox 40 mg SQ daily (WT < 150 kg, CrCl > 30 mL/min) *Enoxaparin/Lovenox 30 mg SQ daily (WT < 150 kg, CrCl > 10-29 mL/min) *Enoxaparin/Lovenox 30 mg SQ BID (WT < 150 kg, CrCl > 30 mL/min) AND/OR *Sequential Compression Device (SCD) 5 or more Highest Order ONE of the following medications: *Heparin 5000 units SQ TID (Preferred with Epidurals) *Enoxaparin/Lovenox 40 mg SQ daily (WT < 150 kg, CrCl > 30 mL/min) *Enoxaparin/Lovenox 30 mg SQ daily (WT < 150 kg, CrCl > 10-29 mL/min) *Enoxaparin/Lovenox 30 mg SQ BID (WT < 150 kg, CrCl > 30 mL/min) AND *Sequential Compression Device (SCD) Data Data Orders Orders Vital Signs (Adult) .ON ADMISSION (08/18/17 12:10) ^ Labor Status (08/18/17 12:10) Urinalysis - C+S If Indicated (08/18/17 12:10) Fibronectin (08/18/17 12:10) Lactated Ringer's 1000 Ml Inj (Lr 1000 M (08/18/17 13:00) Terbutaline Inj (Brethine Inj) (08/18/17 12:15) Fentanyl Inj (Fentanyl Inj) (08/18/17 12:30) Admit To Inpatient (08/18/17 ) Diet Regular Basic (08/18/17 Lunch) Vital Signs (Adult) FRANCIS.QSHIFT (08/18/17 12:20) Heart (08/18/17 12:20) Activity Bed Rest With Brp (08/18/17 12:20) Complete Blood Count With Diff (08/18/17 12:20) Acetaminophen (Tylenol) (08/18/17 12:30) Al-Mag Hy-Si 40-40-4 Mg/Ml Liq (Mag-Al P (08/18/17 12:30) Sodium Chloride 0.9% Flush (Ns Flush) (08/18/17 21:00) Sodium Chloride 0.9% Flush (Ns Flush) (08/18/17 12:30) Zolpidem (Ambien) (08/18/17 21:00) Ondansetron Inj (Zofran Inj) (08/18/17 12:30) Ob/Psych Drug Screen, Urine (08/18/17 12:20) Cefazolin Inj (Ancef Inj) (08/18/17 12:30) Fentanyl Inj (Fentanyl Inj) (08/18/17 12:30) Oxycodone-Acetamin 5-325 Mg (Percocet (08/18/17 12:30) Us Kidney/Renal/Bladder (08/18/17 ) Assessment/Plan Assessment and Plan Patient is 22-year-old white female at 34 weeks presents complaining of worsening back pain nausea and contractions as well as a fever in the night[she describes a temp 102.5 at home] on OB ED she is afebrile however she does have right CVA tenderness urinalysis positive, patient had pyelonephritis earlier in [ cult + E coli >[id number]] but did not get a suppressive dose after initial therapy to avoid a recurrance which now has occurred. [facility] and is seen the them through this . heart rate is reactive and she is having contractions sporadically Impression-34 weeks the pyelonephritis recurrent Plan-admit for IV antibiotics, renal ultrasound, check of CBC CMP and UA with culture, treat any labor signs and symptoms Willie Padilla II, MD Aug 18, 2017 12:39
[2017-08-18 12:53] LABS: BACTERIA, URINE FEW /hpf; BLOOD, URINE TRACE (NEG); COMMENT (UR) CULTURE INDICATED; CULTURE IF INDICATED CULTURE INDICATED; GLUCOSE,URINE NEG (NEG); KETONE, URINE 150 mg/dL (NEG); MUCUS URINE FEW /lpf (OCC); NITRITE,URINE POS (NEG); SQUAMOUS EPITHELIAL CELL URINE 10 /hpf (0-5); URINE COLOR YELLOW (YELLW/STRAW)
[2017-08-18] MEDS: LACTATED RINGER'S 1000 ML INJ 1,000 ML IV SCH ×4 (13:00→21:26)
[2017-08-18] MEDS: ceFAZolin 2 GM PREMIX 50 ML IV SCH ×2 (13:00→21:27)
[2017-08-18 13:10] LABS: AUTOMATED NEUTROPHIL # 12.6 TH/MM3 (1.8-7.7); BASOPHIL % 0.1 % (0.0-2.0); HEMATOCRIT 26.9 % (35.0-46.0); HEMO FLAGS DIFF FINAL; LYMPH % 7.4 % (9.0-44.0); LYMPHOCYTE # 1.2 TH/MM3 (1.0-4.8); MEAN CELL VOLUME 89.9 FL (80.0-100.0); MEAN CORPUSCULAR HEMOGLOBIN 29.7 PG (27.0-34.0); MEAN CORPUSCULAR HGB CONC 33.1 % (32.0-36.0); MONO % 11.6 % (0.0-8.0); NEUT % 80.9 % (16.0-70.0); PLATELET COUNT 163 TH/MM3 (150-450); RED BLOOD COUNT 2.99 MIL/MM3 (4.00-5.30); RED CELL DISTRIBUTION WIDTH 12.3 % (11.6-17.2); WHITE BLOOD COUNT 15.6 TH/MM3 (4.0-11.0)
[2017-08-18] MEDS: ACETAMINOPHEN 325 MG TAB PO PRN ×2 (13:11→18:06)
[2017-08-18 13:28] LABS: ANION GAP 12 MEQ/L (5-15); AST (GOT) 15 U/L (15-37); BICARBONATE 19.3 MEQ/L (21.0-32.0); BLOOD UREA NITROGEN 5 MG/DL (7-18); CHLORIDE 104 MEQ/L (98-107); GLOMERULAR FILTRATION RATE 162 ML/MIN (>89); POTASSIUM 3.3 MEQ/L (3.5-5.1); SODIUM (NA) 135 MEQ/L (136-145)
[2017-08-18 13:29] LABS: ALT (GPT) 13 U/L (10-53)
[2017-08-18 13:31] LABS: ALKALINE PHOSPHATASE 140 U/L (45-117); TOTAL BILIRUBIN ADULT 0.5 MG/DL (0.2-1.0)
[2017-08-18] MEDS: ONDANSETRON HCL 4 MG/2 ML VIAL IV PRN ×3 (14:36→21:26)
--- NOTE | 2017-08-18 17:23 | RADRPT ---
EXAM DATE/TIME: 08/18/2017 15:58 [facility] COMPARISON: No previous studies available for comparison. INDICATIONS : Flank pain. MEDICAL HISTORY : . Pyleonephritis. Chronic left arm pain. SURGICAL HISTORY : Appendectomy. Left sided oophrectomy. ENCOUNTER: Initial ACUITY: 1 day PAIN SCORE: 5/10 LOCATION: Bilateral flank MEASUREMENTS: RIGHT KIDNEY: 12.1 x 6.4 x 6.6 cm LEFT KIDNEY: 11.4 x 5.0 x 4.7 cm FINDINGS: RIGHT KIDNEY: The right kidney is more prominent than the left and demonstrates mild to moderate hydronephrosis. LEFT KIDNEY: Renal cortex is normal in thickness and echotexture. No hydronephrosis, stone, or mass. BLADDER: Not visualized or evaluated. CONCLUSION: 1. A moderate right hydronephrosis. 2. The left kidney is unremarkable. Tarun Jerez MD on August 18, 2017 at 17:21 Board Certified Radiologist. This report was verified electronically.
[2017-08-18] MEDS: SODIUM CHLORIDE 0.9% FLUSH 10 ML FLUSH IV FLUSH SCH (21:00)
[2017-08-18] MEDS ORDERED: ZOLPIDEM TARTRATE 5 MG TAB PO PRN (21:00)
[2017-08-18] MEDS ORDERED: ONDANSETRON HCL 4 MG/2 ML VIAL IV PUSH PRN (21:45)
[2017-08-18] MEDS: FAMOTIDINE 20 MG TAB PO SCH (22:41)
[2017-08-19] MEDS: ACETAMINOPHEN 325 MG TAB PO PRN (01:23)
[2017-08-19] MEDS: ceFAZolin 2 GM PREMIX 50 ML IV SCH ×3 (05:05→21:06)
--- NOTE | 2017-08-19 08:46 | HHI.PR ---
Subjective Remarks OB note HD # 2 AFVSS T max --101.1 deg Kefzol # 2 Pt much improved , less back pain , tolerating diet , did spike a temp in the nite - 101.1 exam-- essentially no CVAT now US - R hydronephrosis mild to mod no stone Imp- pyelo 34 wks improving on IV ATB Plan - D/C home when Afeb for 24 hrs and D/C on suppression -- macrodantin 50 mg po q d or similar regime for rest of preg Objective Vital Signs Date Time Temp Pulse Resp B/P (MAP) Pulse Ox O2 Delivery O2 Flow Rate FiO2 08/19/17 02:30 18 08/18/17 23:50 18 Result Diagram: 08/18/17 1235 08/18/17 1235 Imaging R hydronephrosis on US Assessment and Plan Assessment and Plan Pyelo at 34 wks improving Willie Padilla II, MD Aug 19, 2017 08:46
[2017-08-19] MEDS: SODIUM CHLORIDE 0.9% FLUSH 10 ML FLUSH IV FLUSH SCH ×2 (09:00→21:00)
[2017-08-19] MEDS: FAMOTIDINE 20 MG TAB PO SCH ×2 (09:00→21:06)
[2017-08-19] MEDS: LACTATED RINGER'S 1000 ML INJ 1,000 ML IV SCH ×2 (10:20→21:00)
[2017-08-19] MEDS ORDERED: NICOTINE 14 MG/24 HR PATCH T-DERMAL ONE (14:30)
[2017-08-19 15:12] LABS: AUTOMATED NEUTROPHIL # 8.8 TH/MM3 (1.8-7.7); BASOPHIL % 0.2 % (0.0-2.0); EOSINOPHIL % 0.3 % (0.0-4.0); HEMATOCRIT 24.1 % (35.0-46.0); HEMO FLAGS DIFF FINAL; LYMPH % 10.8 % (9.0-44.0); LYMPHOCYTE # 1.2 TH/MM3 (1.0-4.8); MEAN CELL VOLUME 89.2 FL (80.0-100.0); MEAN CORPUSCULAR HEMOGLOBIN 29.3 PG (27.0-34.0); MEAN CORPUSCULAR HGB CONC 32.9 % (32.0-36.0); MONO % 9.6 % (0.0-8.0); NEUT % 79.1 % (16.0-70.0); PLATELET COUNT 149 TH/MM3 (150-450); RED CELL DISTRIBUTION WIDTH 12.6 % (11.6-17.2); WHITE BLOOD COUNT 11.1 TH/MM3 (4.0-11.0)
[2017-08-20] MEDS: LACTATED RINGER'S 1000 ML INJ 1,000 ML IV SCH (05:00)
[2017-08-20] MEDS: ceFAZolin 2 GM PREMIX 50 ML IV SCH (05:00)
[2017-08-20 06:00] LABS: AUTOMATED NEUTROPHIL # 6.6 TH/MM3 (1.8-7.7); BASOPHIL % 0.1 % (0.0-2.0); EOSINOPHIL % 0.5 % (0.0-4.0); HEMATOCRIT 22.2 % (35.0-46.0); HEMO FLAGS DIFF FINAL; LYMPH % 16.5 % (9.0-44.0); LYMPHOCYTE # 1.5 TH/MM3 (1.0-4.8); MEAN CELL VOLUME 89.8 FL (80.0-100.0); MEAN CORPUSCULAR HEMOGLOBIN 30.7 PG (27.0-34.0); MEAN CORPUSCULAR HGB CONC 34.2 % (32.0-36.0); NEUT % 70.9 % (16.0-70.0); PLATELET COUNT 136 TH/MM3 (150-450); RED BLOOD COUNT 2.48 MIL/MM3 (4.00-5.30); RED CELL DISTRIBUTION WIDTH 12.5 % (11.6-17.2); WHITE BLOOD COUNT 9.3 TH/MM3 (4.0-11.0)
[2017-08-20] MEDS: FAMOTIDINE 20 MG TAB PO SCH (07:34)
[2017-08-20 08:05] VITALS: RESP 17; TEMP 97.8
[2017-08-20] MEDS ORDERED: REMOVE OLD NICODERM (NICOTINE) PATCH T-DERMAL ONE (09:00)
[2017-08-20] MEDS: SODIUM CHLORIDE 0.9% FLUSH 10 ML FLUSH IV FLUSH SCH (09:00)
[2017-08-20] MEDS ORDERED: NITR50CA27 PO (09:08)
[2017-08-20] MEDS ORDERED: MACR100C2 PO ×2 (09:08→09:19)
[2017-08-20] MEDS ORDERED: MACR100C3 PO (09:19)
--- NOTE | 2017-08-20 09:20 | HHI.DCPOC ---
Discharge Care Plan Diagnosis: (1) Report Symptoms to Your Doctor -Temperature above 100.5 degrees -Redness, of incision or excessive or foul smelling drainage -Unusual pain or calf pain -Increased vaginal bleeding -Painful or difficulty urinating -Feelings of extreme sadness or anxiety after 2 weeks Goals to Promote Your Health * To prevent worsening of your condition and complications * To maintain your health at the optimal level Directions to Meet Your Goals Take your medications as prescribed Follow your dietary instruction Follow activity as directed Ensure plenty of rest for recovery Drink fluids for hydration Keep your appointments as scheduled Take your immunizations and boosters as scheduled If your symptoms worsen call your PCP, if no PCP go to Urgent Care Center or Emergency Room Smoking is Dangerous to Your Health. Avoid second hand smoke Call the 24-hour crisis hotline for domestic abuse at Gabriela Floyd MD R1 Aug 20, 2017 09:20
[2017-08-22 10:18] LABS: BATH SALTS (MDPV) UR NEG (NEG); ECSTASY (MDMA) UR NEG (NEG); GABAPENTIN UR NEG (NEG); HEROIN (6-ACETYLMORPHINE) UR NEG (NEG); HYDROMORPHONE U NEG (NEG); K2 SPICE UR NEG (NEG); OBMETHADONE UR NEG (NEG); PHENCYCLIDINE URINE NEG (NEG)
[2017-08-27] MEDS ORDERED: PROC2.5C RECTAL (14:10)
[2017-09-02] MEDS ORDERED: AZIT500T2 PO (15:50)
[2017-09-16] MEDS ORDERED: NITR1CAP37 PO (14:14)
[2017-09-16] MEDS ORDERED: ZOFR8TAB4 SL (14:14)
[2017-09-16] MEDS ORDERED: FERRTAB2 PO (14:15)
== END 2017-08-20 09:54 | disposition home or self-care (01) | DRG 781 ==
LOC: HOBED 11:30 → H2EA 12:36 → OBSVTOIN 12:37
PROVIDERS: ADMIT Obstetrics & Gynecology Maternal & Fetal Medicine; ATTEND Obstetrics & Gynecology Maternal & Fetal Medicine
DX: O23.03 Infections of kidney in pregnancy, third trimester (principal); B96.20 Unspecified Escherichia coli [E. coli] as the cause of diseases classified elsewhere; N13.6 Pyonephrosis; Z3A.34 34 weeks gestation of pregnancy
CPT/HCPCS: 59025; 76775; 80053; 80307; 81001; 85025; 87077; 87086; 87186; G0481; J0690; J2405; J3010; J3105; J7120

== ENCOUNTER 2017-09-19 16:47 | Emergency (ER) | payer MEDICAID ==
[~2017-09-19 16:47] MED LIST changes: -AMOX500C PO; +FERRTAB2 PO; +NITR1CAP37 PO; +PROC2.5C RECTAL; -TERC0.4C2 VAGINAL; +ZOFR8TAB4 SL
--- NOTE | 2017-09-19 17:16 | PD ---
HPI Chief Complaint LOF, ctx Date Seen: Sep 19, 2017 Time Seen: 17:07 Travel History International Travel<30 Days: No Contact w/Intl Traveler<30Days: No Known Affected Area: No History of Present Illness HPI Pt is a 22y/o @ 38.5wks. She has PNC with Dr. Sellers. She called L& D earlier today requesting IOL and presented today insisting that she is 40.0wks. She presents stating that she was "pushing" to urinate and had a big gush of cloudy fluid at 3:50pm and more of her mucus plug. No odor or color. She also reports back labor which started right away and now ctx since arriving to the hospital. She denies VB. +FM. States that she was 2.5cm dilated in the office Saturday when she was checked. is complicated by hyperemesis and anemia. Weeks Gestation: 40 Para: 1 : 2 Last Menstrual Period: Sep 19, 2017 History Past Medical History Narrative Medical anemia bipolar Obstetric History Obstetric History x1 Past Surgical History Narrative Surgical LSC ovarian cystectomies x2 appendectomy Family History Family History: Negative Social History Alcohol Use: No Tobacco Use: Yes (12-1 PPD) Substance Abuse: No Allergies-Medications (Allergen,Severity, Reaction): Coded Allergies: bee venom protein (honey bee) (Unverified Allergy, Severe, 09/16/17) morphine (Unverified Adverse Reaction, Intermediate, Nausea/Vomiting, ) Uncoded Allergies: STRAWBERRIES (Allergy, Unknown, 06/02/17) LACTOSE INTOLERANT (Adverse Reaction, Unknown, 06/02/17) Home Meds Active Scripts Multi-Vit/Iron-Folic [id number] C (Ferralet) 90-1-0.012-120 mg Tab, 1 TAB PO DAILY, #30 BOTTLE 3 Refills Prov:Lynnette Sellers 09/16/17 Ondansetron Odt (Zofran Odt) 8 Mg Tab, 8 MG SL Q12HR for Nausea/Vomiting, #20 TAB 0 Refills Prov:Lynnette Sellers 09/16/17 Nitrofurantoin Macrocrystal (Nitrofurantoin Macrocrystal) 50 Mg Cap, 50 MG PO DAILY for Infection, #30 CAP 0 Refills Prov:Lynnette SellersP 09/16/17 Hydrocortisone Rectal 2.5% (Proctosol Hc 2.5%) 2.5% Cream, 1 APPLIC RECTAL QID Y for PAIN/INFLAMMATION, #1 TUBE 4 Refills Prov:Lynnette SellersP 08/27/17 Vit W/ Ferric Phospha (Vitafol Gummies 3.33-0.333-34.8 mg) 1 Chw Chw, 1 CHEW PO DAILY, #60 BOTTLE 4 Refills Prov:Devorah Swift [facility] 04/09/17 Reported Medications Ranitidine (Zantac 150 Maximum Strength) 150 Mg Tab, 150 MG PO BID, TAB 07/22/17 Discontinued Scripts Azithromycin (Azithromycin) 500 Mg Tab, 500 MG PO DAILY for Infection, #5 TAB 0 Refills Prov:Bernice DrewP 09/02/17 Nitrofurantoin Macrocrystal (Macrodantin) 100 Mg Cap, 100 MG PO HS, #30 CAP 2 Refills Prov:Gabriela Floyd MD R1 08/20/17 Nitrofurantoin Monohydrate Macrocrystals (Macrobid) 100 Mg Capsule, 100 MG PO BID for Infection, #20 CAP 0 Refills Prov:Gabriela Floyd MD R1 08/20/17 Terconazole Vaginal Cream (Terconazole Vaginal Cream) 0.4 % Cream, 1 APPL VAGINAL HS for Fungal Infection, #45 GM 0 Refills For seven days Prov:Lynnette SellersP 07/08/17 Review of Systems Except as stated in HPI: all other systems reviewed are Neg Physical Exam Narrative GENERAL: Well-nourished, well-developed patient. SKIN: Warm and dry. HEAD: Normocephalic and atraumatic. EYES: No scleral icterus. No injection or drainage. ENT: No nasal drainage noted. Mucous membranes pink. Airway patent. ABDOMEN/GI: Abdomen soft, non-tender, gravid EXTREMITIES: No cyanosis or edema. BACK: Nontender without obvious deformity. No CVA tenderness. NEUROLOGICAL: Awake and alert. Motor and sensory grossly within normal limits. CVX: 3cm/50/-1, extremely posterior, moderate consistency FHTs: 140, +accels, single variable decel when laying flat on back and asked to roll onto side, moderate variability, reactive TOCO: no ctx Data Data Vital Signs Reviewed: Yes Orders Orders Vital Signs (Adult) .ON ADMISSION (09/19/17 17:06) ^ Labor Status (09/19/17 17:06) Urinalysis - C+S If Indicated (09/19/17 17:06) ^ Non Stress Test (09/19/17 17:06) Pamg-1 Test .ONCE (09/19/17 17:06) MDM Plan 22y/o @ 38.5wks with 1. LOF -- amnisure negative 2. ctx -- cvx unchanged from exam on Saturday -- toco absolutely quiet 3. IUP -- FHTs cat 1 Stable for d/c home with precautions. Diagnosis Diagnosis: Primary Impression: Amniotic fluid leaking Additional Impressions: Abdominal pain during in third trimester 38 weeks gestation of Disposition: DISCHARGE HOME Ac Oconnor MD Sep 19, 2017 17:16
[2017-09-26] MEDS ORDERED: [UNRECOGNIZED DRUG - CODE] PO ×2 (05:51)
[2017-09-26] MEDS ORDERED: MACR100C2 PO ×2 (05:51)
[2017-09-26] MEDS ORDERED: FOLI400T PO ×2 (05:51)
[2017-09-26] MEDS ORDERED: TUMS500C CHEW ×2 (05:51)
== END 2017-09-19 17:44 | disposition home or self-care (01) ==
LOC: HOBED 16:47
DX: O26.893 Other specified pregnancy related conditions, third trimester (principal); O21.0 Mild hyperemesis gravidarum; O99.013 Anemia complicating pregnancy, third trimester; D64.9 Anemia, unspecified; Z3A.38 38 weeks gestation of pregnancy
CPT/HCPCS: 84112; 99284

== ENCOUNTER 2017-09-26 05:00 | Inpatient (IN) | payer MEDICAID ==
[2017-09-26] VITALS (36 sets, daily range): BP systolic 94–127; BP diastolic 50–83; PULSE 61–130; RESP 16–18; TEMP 97.7–98.3
[~2017-09-26] VITALS: Ht 175.3 cm; Wt 72.0 kg
--- NOTE | 2017-09-26 05:43 | PD ---
HPI Chief Complaint Contractions Travel History International Travel<30 Days: No Contact w/Intl Traveler<30Days: No Known Affected Area: No History of Present Illness HPI 22-year-old 001, IUP at 39.5 care complicated by bipolar disorder, anemia, history of marijuana use , history of pyelonephritis The patient presents complaining of the onset of painful contractions at 3 AM that increased in intensity and frequency to now every 5 minutes. There are no aggravating or alleviating factors. There are no attempted treatments. The patient reports she was 2-3 cm in the office. She denies any leaking of fluid or vaginal bleeding. She reports good movement. Weeks Gestation: 39 Para: 1 : 2 History Past Medical History Narrative Medical Bipolar disorder, anemia, history of pyelonephritis Obstetric History Obstetric History 001, 1 Past Surgical History Surgical History: No Previous Surgery Family History Narrative Family History Asthma Social History Alcohol Use: No Tobacco Use: Yes Substance Abuse: No Allergies-Medications (Allergen,Severity, Reaction): Coded Allergies: bee venom protein (honey bee) (Verified Allergy, Severe, 09/26/17) morphine (Verified Adverse Reaction, Intermediate, Nausea/Vomiting, ) Uncoded Allergies: STRAWBERRIES (Allergy, Unknown, 06/02/17) LACTOSE INTOLERANT (Adverse Reaction, Unknown, 06/02/17) Home Meds Active Scripts Multi-Vit/Iron-Folic [id number] C (Ferralet) 90-1-0.012-120 mg Tab, 1 TAB PO DAILY, #30 BOTTLE 3 Refills Prov:Lynnette Sellers 09/16/17 Ondansetron Odt (Zofran Odt) 8 Mg Tab, 8 MG SL Q12HR for Nausea/Vomiting, #20 TAB 0 Refills Prov:Lynnette Sellers 09/16/17 Nitrofurantoin Macrocrystal (Nitrofurantoin Macrocrystal) 50 Mg Cap, 50 MG PO DAILY for Infection, #30 CAP 0 Refills Prov:Lynnette Sellers 09/16/17 Hydrocortisone Rectal 2.5% (Proctosol Hc 2.5%) 2.5% Cream, 1 APPLIC RECTAL QID Y for PAIN/INFLAMMATION, #1 TUBE 4 Refills Prov:MarloLynnettecaden ELLSWORTH 08/27/17 Vit W/ Ferric Phospha (Vitafol Gummies 3.33-0.333-34.8 mg) 1 Chw Chw, 1 CHEW PO DAILY, #60 BOTTLE 4 Refills Prov:Devorah Swift [facility] 04/09/17 Reported Medications Ranitidine (Zantac 150 Maximum Strength) 150 Mg Tab, 150 MG PO BID, TAB 07/22/17 Review of Systems Except as stated in HPI: all other systems reviewed are Neg Physical Exam Narrative GENERAL: Well-nourished, well-developed patient. SKIN: Warm and dry. HEAD: Normocephalic and atraumatic. EYES: No scleral icterus. No injection or drainage. ENT: No nasal drainage noted. Mucous membranes pink. Airway patent. NECK: Supple, trachea midline. No JVD. CARDIOVASCULAR: Regular rate and rhythm without murmurs, gallops, or rubs. RESPIRATORY: Breath sounds equal bilaterally. No accessory muscle use. BREASTS: Deferred ABDOMEN/GI: Abdomen soft, non-tender, bowel sounds present, no rebound, no guarding Gravid GENITOURINARY: External Genitalia: intact and normal in appearance. Normal BUS. No cervical or vaginal masses noted, physiologic discharge, grossly normal rugae FHT's: 130s baseline with moderate long-term variability, good accelerations, no decelerations noted EXTREMITIES: No cyanosis or edema. BACK: Nontender without obvious deformity. NEUROLOGICAL: Awake and alert. Motor and sensory grossly within normal limits. Five out of 5 muscle strength in all muscle groups. Normal speech. Psych: Grossly normal memory and affect Musculoskeletal: Grossly normal range of motion, gait, muscle strength Data Data Orders Orders Ob (2e) Additional Admit Info (09/26/17 05:24) MDM Plan Assessment plan: 1. IUP at 39.5 2. Labor: Patient appears to be in active labor at term, will admit and manage expectantly at this time. Discussed risks of , risks/indications of delivery. 3. well-being: Reassuring testing, continue monitoring 4. Bipolar disorder 5. Anemia with history of transfusion 6. History of pyelonephritis 7. History of marijuana use 8. GBS negative Lynnette Bourne MD Sep 26, 2017 05:43
[2017-09-26] MEDS: LACTATED RINGER'S 1000 ML INJ 1,000 ML IV SCH ×2 (05:50→06:56)
[2017-09-26] MEDS ORDERED: MACR100C2 PO (05:51)
[2017-09-26] MEDS ORDERED: [UNRECOGNIZED DRUG - CODE] PO (05:51)
[2017-09-26] MEDS ORDERED: TUMS500C CHEW (05:51)
[2017-09-26] MEDS ORDERED: FOLI400T PO (05:51)
[2017-09-26] MEDS ORDERED: LIDOCAINE HCL 1% 50 ML VIAL INFIL PRN (06:00)
[2017-09-26] MEDS ORDERED: LIDOCAINE HCL 1% 50 ML VIAL I-DERMAL PRN (06:00)
[2017-09-26] MEDS ORDERED: LACTATED RINGER'S 1000 ML INJ 1,000 ML IV PRN (06:00)
[2017-09-26] MEDS ORDERED: SODIUM CHLORID 0.9% 500 ML INJ 500 ML IV PRN (06:00)
[2017-09-26] MEDS ORDERED: OXYTOCIN 30 UNITS-500ML PREMIX 500 ML IV ONE (06:00)
[2017-09-26] MEDS ORDERED: CITRIC ACID-SODIUM CITRATE LIQ 30 ML UDC PO SCH (06:00)
[2017-09-26] MEDS ORDERED: MINERAL OIL 10 ML VIAL TOPICAL PRN (06:00)
[2017-09-26] MEDS ORDERED: ONDANSETRON HCL 4 MG/2 ML VIAL ONE (06:01)
[2017-09-26 06:15] LABS: AUTOMATED NEUTROPHIL # 7.2 TH/MM3 (1.8-7.7); BASOPHIL % 0.2 % (0.0-2.0); EOSINOPHIL # 0.1 TH/MM3 (0-0.4); EOSINOPHIL % 1.1 % (0.0-4.0); HEMATOCRIT 28.4 % (35.0-46.0); HEMOGLOBIN 9.7 GM/DL (11.6-15.3); LYMPH % 25.8 % (9.0-44.0); LYMPHOCYTE # 2.8 TH/MM3 (1.0-4.8); MEAN CORPUSCULAR HEMOGLOBIN 29.6 PG (27.0-34.0); MEAN PLATELET VOLUME 9.1 FL (7.0-11.0); MONO % 7.1 % (0.0-8.0); MONOCYTE # 0.8 TH/MM3 (0-0.9); NEUT % 65.8 % (16.0-70.0); PLATELET COUNT 175 TH/MM3 (150-450); RED BLOOD COUNT 3.27 MIL/MM3 (4.00-5.30); RED CELL DISTRIBUTION WIDTH 13.7 % (11.6-17.2); WHITE BLOOD COUNT 10.9 TH/MM3 (4.0-11.0)
[2017-09-26] MEDS ORDERED: SODIUM CHLOR 0.9% 1000 ML INJ 1,000 ML IV PRN (06:20)
[2017-09-26] MEDS ORDERED: fentaNYL 2MCG-BUPIV 0.125% INJ 100 ML ONE (06:23)
[2017-09-26 06:26] LABS: AMORPHOUS SEDIMENT, URINE RARE; BACTERIA, URINE RARE /hpf; BILIRUBIN, URINE NEG (NEG); BLOOD, URINE NEG (NEG); GLUCOSE,URINE NEG (NEG); KETONE, URINE NEG (NEG); MUCUS URINE FEW /lpf (OCC); NITRITE,URINE NEG (NEG); SQUAMOUS EPITHELIAL CELL URINE 4 /hpf (0-5); URINE COLOR YELLOW (YELLW/STRAW); URINE LEUKOCYTE ESTERASE SMALL (NEG)
--- NOTE | 2017-09-26 07:01 | HHI.HP ---
HPI Chief Complaint contractions Date Seen: Sep 26, 2017 Time Seen: 06:00 Travel History International Travel<30 Days: No Contact w/Intl Traveler<30Days: No Known Affected Area: No History of Present Illness HPI Patient is a 22- year-old Female at 39/5 weeks GA presented to OB triage because she was experiencing frequent contractions about 5 mins apart. Pt stated she had a membrane sweep done by her [employer]UCK [employer] yesterday as a way to help her labor progress. Pt is GBS negative. Endorses movement. Denies LOF or vaginal bleeding. Denies fever, chills, CP, RUQ pain, VARELA, visual changes or SOB. Weeks Gestation: 39 Para: 1 : 2 Miscarriage: 0 : 0 History Past Medical History Narrative Medical anemia hyperemesis gravidarum GERD during recurrent UTIs Ovarian torsion lactose intolerant Obstetric History Obstetric History -1st , complicated by pt's anemia. Pt required blood transfusion. -this pt treated for UTI Past Surgical History Narrative Surgical laparoscopic Left Ovarian cyst removal, 2006 and 2009 laparoscopic appendectomy done during ovarian cyst removal as a preventative measure, per pt Family History Narrative Family History Maternal family- kidney infections Father of baby has a son with GI/ Colon problem, required colostomy as Social History Narrative Social History Pt lives with fiance -smokes 1/2 pack per day for 9 years -Denies alcohol or illicit drug use Alcohol Use: No Tobacco Use: Yes Substance Abuse: No Allergies-Medications (Allergen,Severity, Reaction): Coded Allergies: bee venom protein (honey bee) (Verified Allergy, Severe, 09/26/17) morphine (Verified Adverse Reaction, Intermediate, Nausea/Vomiting, ) Uncoded Allergies: STRAWBERRIES (Allergy, Unknown, 06/02/17) LACTOSE INTOLERANT (Adverse Reaction, Unknown, 06/02/17) Home Meds Active Scripts Multi-Vit/Iron-Folic [id number] C (Ferralet) 90-1-0.012-120 mg Tab, 1 TAB PO DAILY, #30 BOTTLE 3 Refills Prov:Lynnette Sellers 09/16/17 Nitrofurantoin Macrocrystal (Nitrofurantoin Macrocrystal) 50 Mg Cap, 50 MG PO DAILY for Infection, #30 CAP 0 Refills Prov:Lynnette Sellers 09/16/17 Reported Medications Calcium Carbonate (Antacid) (Tums) 500 Mg Chew, 500 MG CHEW Y for HEARTBURN, TAB 0 Refills 09/26/17 Nitrofurantoin Monohydrate Macrocrystals (Macrobid) 100 Mg Cap, 50 MG PO DAILY for Infection, CAP 0 Refills 09/26/17 Cobalamine Combinations (B-12) 100-5,000 Mcg Subl, 1 TAB PO DAILY for Nutritional Supplement, TAB.SL 0 Refills 09/26/17 Folic Acid (Folic Acid) 0.4 Mg Tab, 400 MCG PO DAILY for Nutritional Supplement , TAB 0 Refills 09/26/17 Ranitidine (Zantac 150 Maximum Strength) 150 Mg Tab, 150 MG PO BID, TAB 07/22/17 Discontinued Scripts Ondansetron Odt (Zofran Odt) 8 Mg Tab, 8 MG SL Q12HR for Nausea/Vomiting, #20 TAB 0 Refills Prov:Lynnette Sellers 09/16/17 Hydrocortisone Rectal 2.5% (Proctosol Hc 2.5%) 2.5% Cream, 1 APPLIC RECTAL QID Y for PAIN/INFLAMMATION, #1 TUBE 4 Refills Prov:Lynnette Sellers 08/27/17 Vit W/ Ferric Phospha (Vitafol Gummies 3.33-0.333-34.8 mg) 1 Chw Chw, 1 CHEW PO DAILY, #60 BOTTLE 4 Refills Prov:Devorah Swift 04/09/17 Review of Systems Except as stated in HPI: all other systems reviewed are Neg Physical Exam Narrative GENERAL: Well-nourished, well-developed patient. SKIN: Warm and dry. HEAD: Normocephalic and atraumatic. EYES: No scleral icterus. No injection or drainage. ENT: No nasal drainage noted. Mucous membranes pink. Airway patent. NECK: Supple, trachea midline. No JVD. CARDIOVASCULAR: Regular rate and rhythm without murmurs, gallops, or rubs. RESPIRATORY: Breath sounds equal bilaterally. No accessory muscle use. BREASTS: Bilateral exam showed no masses , no retractions, no nipple discharge. ABDOMEN/GI: Abdomen soft, non-tender, bowel sounds present, no rebound, no guarding Gravid to 39/5 weeks size GENITOURINARY: External Genitalia: intact and normal in appearance Cervix: posterior Dilatation: 4-5 Effacement: 70 Station: -2 Membranes: intact Uterine Contractions: irregular, hard to visualize on monitor because pt on medicine ball. FHT's: Category: 1 Baseline: 130 Reactive: positive Variability: mod Decels: none EXTREMITIES: No cyanosis or edema. BACK: Nontender without obvious deformity. No CVA tenderness. NEUROLOGICAL: Awake and alert. Motor and sensory grossly within normal limits. Five out of 5 muscle strength in all muscle groups. Normal speech. Caprini VTE Risk Assessment Caprini VTE Risk Assessment: Mod/High Risk (score >= 2) Caprini Risk Assessment Model Point Value = 1 Point Value = 2 Point Value = 3 Point Value = 5 Age 41-60 Minor surgery BMI > 25 kg/m2 Swollen legs Varicose veins or History of unexplained or recurrent spontaneous Oral contraceptives or hormone replacement Sepsis (< 1 month) Serious lung disease, including pneumonia (< 1 month) Abnormal pulmonary function Acute myocardial infarction Congestive heart failure (< 1 month) History of inflammatory bowel disease Medical patient at bed rest Age 61-74 Arthroscopic surgery Major open surgery (> 45 min) Laparoscopic surgery (> 45 min) Malignancy Confined to bed (> 72 hours) Immobilizing plaster cast Central venous access Age >= 75 History of VTE Family history of VTE Factor V Leiden Prothrombin [id number] Lupus anticoagulant Anticardiolipin antibodies Elevated serum homocysteine Heparin-induced thrombocytopenia Other congenital or acquired thrombophilia Stroke (< 1 month) Elective arthroplasty Hip, pelvis, or leg fracture Acute spinal cord injury (< 1 month) Prophylaxis Regimen Total Risk Factor Score Risk Level Prophylaxis Regimen 0-1 Low Early ambulation 2 Moderate Order ONE of the following: *Sequential Compression Device (SCD) *Heparin 5000 units SQ BID 3-4 Higher Order ONE of the following medications: *Heparin 5000 units SQ TID *Enoxaparin/Lovenox 40 mg SQ daily (WT < 150 kg, CrCl > 30 mL/min) *Enoxaparin/Lovenox 30 mg SQ daily (WT < 150 kg, CrCl > 10-29 mL/min) *Enoxaparin/Lovenox 30 mg SQ BID (WT < 150 kg, CrCl > 30 mL/min) AND/OR *Sequential Compression Device (SCD) 5 or more Highest Order ONE of the following medications: *Heparin 5000 units SQ TID (Preferred with Epidurals) *Enoxaparin/Lovenox 40 mg SQ daily (WT < 150 kg, CrCl > 30 mL/min) *Enoxaparin/Lovenox 30 mg SQ daily (WT < 150 kg, CrCl > 10-29 mL/min) *Enoxaparin/Lovenox 30 mg SQ BID (WT < 150 kg, CrCl > 30 mL/min) AND *Sequential Compression Device (SCD) Data Data Vital Signs Reviewed: Yes Orders Orders Ob (2e) Additional Admit Info (09/26/17 05:24) Ondansetron Inj (Zofran Inj) (09/26/17 06:01) Admit To Inpatient (09/26/17 ) Code Status (09/26/17 06:00) Vital Signs (Adult) .Per protocol (09/26/17 06:00) Activity Oob Ad Sharla (09/26/17 06:00) Heart (09/26/17 06:00) Amnioinfusion (09/26/17 06:00) Urinary Catheter Management .ONCE (09/26/17 06:00) Diet Liquid (09/26/17 Breakfast) Lactated Ringer's 1000 Ml Inj (Lr 1000 M (09/26/17 06:00) Lactated Ringer's 1000 Ml Inj (Lr 1000 M (09/26/17 06:00) Sodium Chlorid 0.9% 500 Ml Inj (Ns 500 M (09/26/17 06:00) Sodium Chlor 0.9% 1000 Ml Inj (Ns 1000 M (09/26/17 06:20) Lidocaine 1% Inj (50 Ml) (Xylocaine 1% I (09/26/17 06:00) Citric Acid-Sodium Citrate Liq (Bicitra (09/26/17 06:00) Fentanyl Inj (Fentanyl Inj) (09/26/17 06:00) Fentanyl Inj (Fentanyl Inj) (09/26/17 06:00) Complete Blood Count With Diff (09/26/17 06:00) Hold Clot (09/26/17 06:00) Abo/Rh Blood Type (09/26/17 06:00) Urinalysis - C+S If Indicated (09/26/17 06:00) Type And Screen (09/26/17 06:00) Resp Oxygen Non Rebreathe Mask (09/26/17 ) ^ Epidural / Intrathecal Infus (09/26/17 06:00) Oxytocin 30 Units-500ml Premix (Pitocin (09/26/17 06:00) Lidocaine 1% Inj (50 Ml) (Xylocaine 1% I (09/26/17 06:00) Light Mineral Oil (Muri-Lube Oil) (09/26/17 06:00) Inpatient Certification (09/26/17 ) Specimen To Be Collected PRN (09/26/17 06:00) Ob/Psych Drug Screen, Urine (09/26/17 06:03) Fentanyl 2mcg-Bupiv 0.125% Inj (Fentanyl (09/26/17 06:23) ^ Place On Chart (09/26/17 ) ^ Medication Indications (09/26/17 ) Consent (09/26/17 ) ^ No Systemic Narcotics (09/26/17 ) ^ Call Anesthesiologist (09/26/17 ) ^ Discontinue Epidural Cathete (09/26/17 ) Anticoagulant Alert (09/26/17 ) ^ Epidural Alert (09/26/17 ) Group B Strep: Negative Labs Laboratory Tests Test 09/26/17 05:30 09/26/17 05:50 Urine Color YELLOW Urine Turbidity HAZY Urine pH 7.0 Urine Specific [place] 1.016 Urine Protein NEG Urine Glucose (UA) NEG Urine Ketones NEG Urine Occult Blood NEG Urine Nitrite NEG Urine Bilirubin NEG Urine Urobilinogen LESS THAN 2.0 Urine Leukocyte Esterase SMALL Urine RBC 1 Urine WBC 2 Urine Squamous Epithelial Cells 4 Urine Amorphous Sediment RARE Urine Bacteria RARE Urine Mucus FEW Microscopic Urinalysis Comment CULT NOT INDICATED White Blood Count 10.9 Red Blood Count 3.27 Hemoglobin 9.7 Hematocrit 28.4 Mean Corpuscular Volume 87.0 Mean Corpuscular Hemoglobin 29.6 Mean Corpuscular Hemoglobin Concent 34.0 Red Cell Distribution Width 13.7 Platelet Count 175 Mean Platelet Volume 9.1 Neutrophils (%) (Auto) 65.8 Lymphocytes (%) (Auto) 25.8 Monocytes (%) (Auto) 7.1 Eosinophils (%) (Auto) 1.1 Basophils (%) (Auto) 0.2 Neutrophils # (Auto) 7.2 Lymphocytes # (Auto) 2.8 Monocytes # (Auto) 0.8 Eosinophils # (Auto) 0.1 Basophils # (Auto) 0.0 CBC Comment DIFF FINAL Differential Comment Assessment/Plan Problem List: (1) 39 weeks gestation of ICD Codes: Z3A.39 - 39 weeks gestation of Plan: 1. IUP at 39/5 weeks gestation found to be in active labor -continue routine OB care -pt is GBS neg -FHT cat. 1 -f/u UDS, cbc, type and screen -plan to admit pt to labor and delivery wdw OB team Assessment and Plan Patient is a 22- year-old Female at 39/5 weeks GA presented to OB triage because she was experiencing frequent contractions about 5 mins apart. Pt found to be active labor. Plan to admit to L&D for labor management. Celestina Mayes MD, R1 Sep 26, 2017 07:01
[2017-09-26] MEDS ORDERED: ePHEDrine/NS 25 MG/5 ML SYR IV PUSH PRN (07:30)
[2017-09-26] MEDS ORDERED: fentaNYL 2MCG-BUPIV 0.125% 100 ML EPIDURAL SCH (07:30)
[2017-09-26] MEDS ORDERED: NO SYSTEM NARCOTICS PRN (07:30)
[2017-09-26] MEDS ORDERED: DO NOT ADMINISTER ANTICOAGULANTS PRN (07:30)
[2017-09-26] MEDS ORDERED: FAMOTIDINE 20 MG TAB PO ONE (08:30)
--- NOTE | 2017-09-26 09:13 | PD.LABORPN ---
Subjective Subjective AROM by Dr. Seals. Patient doing well. No complaints at this time. Objective Vital Signs Vital Signs Date Time Temp Pulse Resp B/P (MAP) Pulse Ox O2 Delivery O2 Flow Rate FiO2 09/26/17 09:00 71 122/74 (90) 09/26/17 08:31 130 94/50 (65) 09/26/17 08:00 73 106/76 (86) 09/26/17 07:45 97.7 73 09/26/17 07:45 18 09/26/17 07:45 66 96/71 (79) 09/26/17 07:40 66 09/26/17 07:40 72 106/67 (80) 09/26/17 07:35 80 09/26/17 07:35 74 108/77 (87) 09/26/17 07:30 64 102/69 (80) 09/26/17 07:30 67 09/26/17 07:25 68 112/75 (87) 09/26/17 07:25 65 09/26/17 07:20 65 112/70 (84) 09/26/17 07:20 70 09/26/17 07:15 65 111/70 (84) 09/26/17 07:15 61 09/26/17 07:12 67 110/70 (83) 09/26/17 07:10 65 09/26/17 07:10 66 114/75 (88) 09/26/17 07:05 68 118/74 (89) 09/26/17 07:05 70 09/26/17 07:01 18 09/26/17 07:00 67 09/26/17 07:00 65 121/67 (85) 09/26/17 06:56 18 09/26/17 06:55 61 09/26/17 06:55 68 113/64 (80) 09/26/17 06:50 73 18 115/65 (82) 09/26/17 06:50 73 09/26/17 06:45 72 107/68 (81) 09/26/17 06:45 80 09/26/17 06:43 76 114/70 (85) 09/26/17 06:40 75 113/76 (88) 09/26/17 06:40 77 09/26/17 06:37 18 09/26/17 06:36 77 111/71 (84) 09/26/17 06:34 77 115/72 (86) Objective Pelvic Exam: Cervix: mid Dilatation: 9-10 Effacement: 100% Station: 0 Presentation: vertex Membranes: AROM Uterine Contractions: q2-3min FHT's: Category: 1 Baseline: 110s Reactive: yes Variability: moderate Decels: no Weeks Gestation: 39 Gest Age Assessed Date: Sep 26, 2017 Gest Age Assessed Time: 05:30 Pt started active labor?: Yes Active labor start date: Sep 26, 2017 Active labor start time: 05:30 Medical induction of labor?: No Artificial rupture of membrane: Yes Artificial ROM date: Sep 26, 2017 Artifical ROM time: 08:44 Assessment/Plan Problem List: (1) 39 weeks gestation of ICD Codes: Z3A.39 - 39 weeks gestation of Plan: Patient is a 22- year-old Female at 39/6 weeks in active labor 1. IUP -category 1, reassuring 2. Labor -s/p AROM -continue routine OB care -anticipate 3. GBS neg sdw Vianney Ni MD R1 Sep 26, 2017 09:13
[2017-09-26] MEDS ORDERED: diphenhydrAMINE HCL 25 MG CAP PO PRN (09:15)
--- NOTE | 2017-09-26 09:51 | HHI.PR ---
Subjective Remarks The patient progressed to complete complete/+1 and commenced spontaneous maternal expulsive efforts. There is a reassuring heart rate tracing throughout. The head delivered spontaneously and atraumatically over an intact perineum, followed by spontaneous and atraumatic delivery of the anterior shoulder and remainder of the . The was vigorous at delivery and placed on the maternal abdomen after a time delay of 45 seconds the cord was doubly clamped and cut. Cord blood was obtained for the nursery and the placenta delivered spontaneously and appeared to be intact. There was scant bleeding after delivery of the placenta in the vagina and perineum were reinspected and noted be intact. and mother are both doing well. I was present and gowned for the entire delivery and delivery of the placenta. Objective Vital Signs Date Time Temp Pulse Resp B/P (MAP) Pulse Ox O2 Delivery O2 Flow Rate FiO2 09/26/17 09:00 71 122/74 (90) 09/26/17 08:31 130 94/50 (65) 09/26/17 08:00 73 106/76 (86) 09/26/17 07:45 97.7 73 09/26/17 07:45 18 09/26/17 07:45 66 96/71 (79) 09/26/17 07:40 66 09/26/17 07:40 72 106/67 (80) 09/26/17 07:35 80 09/26/17 07:35 74 108/77 (87) 09/26/17 07:30 64 102/69 (80) 09/26/17 07:30 67 09/26/17 07:25 68 112/75 (87) 09/26/17 07:25 65 09/26/17 07:20 65 112/70 (84) 09/26/17 07:20 70 09/26/17 07:15 65 111/70 (84) 09/26/17 07:15 61 09/26/17 07:12 67 110/70 (83) 09/26/17 07:10 65 09/26/17 07:10 66 114/75 (88) 09/26/17 07:05 68 118/74 (89) 09/26/17 07:05 70 09/26/17 07:01 18 09/26/17 07:00 67 09/26/17 07:00 65 121/67 (85) 09/26/17 06:56 18 09/26/17 06:55 61 09/26/17 06:55 68 113/64 (80) 09/26/17 06:50 73 18 115/65 (82) 09/26/17 06:50 73 09/26/17 06:45 72 107/68 (81) 09/26/17 06:45 80 09/26/17 06:43 76 114/70 (85) 09/26/17 06:40 75 113/76 (88) 09/26/17 06:40 77 09/26/17 06:37 18 09/26/17 06:36 77 111/71 (84) 09/26/17 06:34 77 115/72 (86) Result Diagram: 09/26/17 0550 Lynnette Bourne MD Sep 26, 2017 09:51
--- NOTE | 2017-09-26 09:52 | PD.OB.DELI ---
Weeks gestation: 39 Gest age assessed date: Sep 26, 2017 Gest age assessed time: 05:30 Pt started active labor?: Yes Active labor start date: Sep 26, 2017 Active labor start time: 05:30 Medical induction of labor?: No Artificial rupture of membrane: Yes Artificial ROM date: Sep 26, 2017 Artifical ROM time: 08:44 Anesthesia: Epidural Episiotomy: None Vaginal Delivery: Normal, Spontaneous Presentation: Occiput anterior Nuchal Cord: None Delayed cord clamping (45 sec): Yes Infant: Female Delivery date: Sep 26, 2017 Delivery time: 09:39 One Minute : 8 Five Minute : 9 Additional Information 22yr old at 39/5, w/ no complications. GBS neg. Vianney Seals MD R1 Sep 26, 2017 09:52
[2017-09-26] MEDS ORDERED: ZOLPIDEM TARTRATE 5 MG TAB PO PRN (10:00)
[2017-09-26] MEDS ORDERED: SODIUM CHLORIDE 0.9% FLUSH 10 ML FLUSH IV FLUSH SCH (10:00)
[2017-09-26] MEDS ORDERED: DOCUSATE SODIUM 50 MG/SENNA 8.6 MG TAB PO PRN (10:00)
[2017-09-26] MEDS ORDERED: WITCH HAZEL 50%/GLYCERIN 12.5% 40 PAD JAR TOPICAL PRN (10:00)
[2017-09-26] MEDS ORDERED: SODIUM CHLORIDE 0.9% FLUSH 10 ML FLUSH IV FLUSH PRN (10:00)
[2017-09-26] MEDS ORDERED: ALUMINUM/MAGNESIUM/SIMETH 30 ML CUP PO PRN (10:00)
[2017-09-26] MEDS ORDERED: BENZOCAINE 20% TOPICAL SPRAY 60 ML CAN TOPICAL PRN (10:00)
[2017-09-26] MEDS ORDERED: ONDANSETRON ODT 4 MG TAB PO PRN (10:00)
[2017-09-26] MEDS ORDERED: DIPHTH/TETANUS/ACEL PERTUSSIS (BOOSTER) 0.5 ML VIAL/PFS IM ONE (16:00)
[2017-09-26] MEDS ORDERED: MEASLES, MUMPS, RUBELLA VACCINE 0.5 ML VIAL SQ ONE (16:00)
[2017-09-26] MEDS: IBUPROFEN 600 MG TAB PO PRN ×2 (16:47→22:48)
[2017-09-26] MEDS: ACETAMINOPHEN 325 MG TAB PO PRN ×2 (18:30→22:49)
[2017-09-27] MEDS: ACETAMINOPHEN 325 MG TAB PO PRN ×2 (04:35→13:54)
[2017-09-27] MEDS: IBUPROFEN 600 MG TAB PO PRN ×2 (06:58→13:54)
[2017-09-27 08:00] VITALS: BP 109/72; PULSE 72; RESP 16; TEMP 98.3
--- NOTE | 2017-09-27 08:32 | HHI.OB ---
Subjective Remarks 22 year old female s/p at 39/6 wks gestation, PPD1. AFVSS. Patient reports she is feeling well. Bleeding is decreasing and pain is well- controlled. She is formula feeding and bonding well with baby. Ambulating without difficulties. She is tolerating a diet without nausea or vomiting. She has not had a bowel movement. She has passed gas. Denies chest pain, dysuria, shortness of breath, or calf pain. Objective Vitals/I&O Vital Signs Date Time Temp Pulse Resp B/P (MAP) Pulse Ox O2 Delivery O2 Flow Rate FiO2 09/26/17 20:00 70 108/69 (82) 09/26/17 20:00 97.8 18 09/26/17 13:00 98.3 71 16 100/53 (69) 09/26/17 11:15 69 107/55 (72) 09/26/17 11:00 16 09/26/17 11:00 74 116/65 (82) 09/26/17 10:45 16 09/26/17 10:45 70 113/57 (75) 09/26/17 10:30 68 121/78 (92) 09/26/17 10:18 18 09/26/17 10:15 70 107/83 (91) 09/26/17 10:03 16 09/26/17 10:01 72 120/72 (88) 09/26/17 09:53 97.7 18 09/26/17 09:52 80 127/67 (87) 09/26/17 09:30 76 116/69 (85) 09/26/17 09:00 71 122/74 (90) 09/26/17 08:31 130 94/50 (65) Objective Remarks GENERAL: Well-nourished, well-developed patient. CARDIOVASCULAR: Regular rate and rhythm without murmurs, gallops, or rubs. RESPIRATORY: Breath sounds equal bilaterally. No accessory muscle use. ABDOMEN/GI: Abdomen soft, non-tender. Fundus: Firm, non-tender at umbilicus. GENITOURINARY: Light to moderate bleeding. EXTREMITIES: No cyanosis or edema, non-tender, without signs of DVT. Medications and IVs Current Medications Medications (Trade) Dose Ordered Sig/Alberto Route Start Time Stop Time Status Last Admin (Benadryl) 25 mg Q4H PRN PO 11/2/17 09:15 09/26/17 09:32 (NS Flush) 2 ml BID IV FLUSH 09/26/17 10:00 (NS Flush) 2 ml UNSCH PRN IV FLUSH 09/26/17 10:00 (Tylenol) 650 mg Q4H PRN PO 09/26/17 10:00 09/27/17 04:35 (Motrin) 600 mg Q6H PRN PO 09/26/17 10:00 09/27/17 06:58 (Americaine 20% Top Spr) 1 spray Q4H PRN TOPICAL 09/26/17 10:00 (Tucks Pads) 1 applic QID PRN TOPICAL 09/26/17 10:00 (Melita-Colace) 2 tab Q12H PRN PO 09/26/17 10:00 (Ambien) 5 mg HS PRN PO 09/26/17 10:00 (Mag-Al Plus Susp Liq) 15 ml Q8H PRN PO 09/26/17 10:00 (Zofran Odt) 4 mg Q6H PRN PO 09/26/17 10:00 Assessment/Plan Assessment and Plan 22 yo female s/p , PPD 1 - AFVSS - Continue routine care - Motrin PRN pain - Encourage OOB - Pelvic rest x 6 wks. - Contraception: Depo - Anticipate D/C tomorrow Vianney Seals MD R1 Sep 27, 2017 08:32
[2017-09-27] MEDS ORDERED: medroxyPROGESTERone ACETATE SUSP 150 MG/ML SYRINGE IM ONE (09:00)
--- NOTE | 2017-09-27 14:19 | HHI.DCPOC ---
Discharge Care Plan Diagnosis: (1) Normal vaginal delivery Report Symptoms to Your Doctor -Temperature above 100.5 degrees -Redness, of incision or excessive or foul smelling drainage -Unusual pain or calf pain -Increased vaginal bleeding -Painful or difficulty urinating -Feelings of extreme sadness or anxiety after 2 weeks Goals to Promote Your Health * To prevent worsening of your condition and complications * To maintain your health at the optimal level Directions to Meet Your Goals Take your medications as prescribed Follow your dietary instruction Follow activity as directed Ensure plenty of rest for recovery Drink fluids for hydration Keep your appointments as scheduled Take your immunizations and boosters as scheduled If your symptoms worsen call your PCP, if no PCP go to Urgent Care Center or Emergency Room Smoking is Dangerous to Your Health. Avoid second hand smoke Call the 24-hour crisis hotline for domestic abuse at Vianney Seals MD R1 Sep 27, 2017 14:19
--- NOTE | 2017-09-27 14:19 | HHI.DCPOC ---
Discharge Care Plan Diagnosis: (1) Normal vaginal delivery Report Symptoms to Your Doctor -Temperature above 100.5 degrees -Redness, of incision or excessive or foul smelling drainage -Unusual pain or calf pain -Increased vaginal bleeding -Painful or difficulty urinating -Feelings of extreme sadness or anxiety after 2 weeks Goals to Promote Your Health * To prevent worsening of your condition and complications * To maintain your health at the optimal level Directions to Meet Your Goals Take your medications as prescribed Follow your dietary instruction Follow activity as directed Ensure plenty of rest for recovery Drink fluids for hydration Keep your appointments as scheduled Take your immunizations and boosters as scheduled If your symptoms worsen call your PCP, if no PCP go to Urgent Care Center or Emergency Room Smoking is Dangerous to Your Health. Avoid second hand smoke Call the 24-hour crisis hotline for domestic abuse at Vianney Seals MD R1 Sep 27, 2017 14:19
--- NOTE | 2017-09-27 14:19 | HHI.DCPOC ---
Discharge Care Plan Diagnosis: (1) Normal vaginal delivery Report Symptoms to Your Doctor -Temperature above 100.5 degrees -Redness, of incision or excessive or foul smelling drainage -Unusual pain or calf pain -Increased vaginal bleeding -Painful or difficulty urinating -Feelings of extreme sadness or anxiety after 2 weeks Goals to Promote Your Health * To prevent worsening of your condition and complications * To maintain your health at the optimal level Directions to Meet Your Goals Take your medications as prescribed Follow your dietary instruction Follow activity as directed Ensure plenty of rest for recovery Drink fluids for hydration Keep your appointments as scheduled Take your immunizations and boosters as scheduled If your symptoms worsen call your PCP, if no PCP go to Urgent Care Center or Emergency Room Smoking is Dangerous to Your Health. Avoid second hand smoke Call the 24-hour crisis hotline for domestic abuse at Vianney Seals MD R1 Sep 27, 2017 14:19
== END 2017-09-27 15:33 | disposition home or self-care (01) | DRG 812 ==
LOC: HOBED 05:00 → H2EA 05:24 → H1EA 12:20
PROVIDERS: ADMIT Obstetrics & Gynecology; ATTEND Obstetrics & Gynecology
PROC: 10E0XZZ Delivery of Products of Conception, External Approach (ICD-10-PCS; principal; 2017-09-26)
PROC: 00HU33Z Insertion of Infusion Device into Spinal Canal, Percutaneous Approach (ICD-10-PCS; 2017-09-26)
PROC: 3E0R3BZ Introduction of Anesthetic Agent into Spinal Canal, Percutaneous Approach (ICD-10-PCS; 2017-09-26)
DX: D64.9 Anemia, unspecified (principal); F31.9 Bipolar disorder, unspecified; O99.02 Anemia complicating childbirth; Z37.0 Single live birth; Z3A.39 39 weeks gestation of pregnancy; O99.344 Other mental disorders complicating childbirth; O99.334 Smoking (tobacco) complicating childbirth; F17.210 Nicotine dependence, cigarettes, uncomplicated; O99.62 Diseases of the digestive system complicating childbirth; K21.9 Gastro-esophageal reflux disease without esophagitis; Z87.440 Personal history of urinary (tract) infections
CPT/HCPCS: 80307; 81001; 85025; 85461; 86850; 86900; 86901; 90384; 90715; G0481; J1050; J2405; J2590; J2790; J7120

== ENCOUNTER 2018-04-15 12:31 | Emergency (ER) | payer MEDICAID ==
[~2018-04-15] VITALS: Ht 175.3 cm; Wt 77.0 kg
[~2018-04-15 12:31] MED LIST changes: +DEPO150I IM; -FERRTAB2 PO; -NITR1CAP37 PO; -PREN1CHW7 PO; -PROC2.5C RECTAL; -ZANTTAB PO; -ZOFR8TAB4 SL
[2018-04-15 12:38] VITALS: BP 120/69; PULSE 73; RESP 16; TEMP 98.1; O2SAT 99
[2018-04-15] MEDS ORDERED: DEPA500T3 PO (12:48)
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
[2018-04-15] MEDS ORDERED: MAGICPED SWISH-SWAL (13:36)
[2018-04-15] MEDS ORDERED: PRED10 PO (13:36)
== END 2018-04-15 14:00 | disposition home or self-care (01) ==
LOC: PHEFT 12:31
DX: J02.9 Acute pharyngitis, unspecified (principal)
CPT/HCPCS: 87081; 87880; 99283